=== PATIENT | male | born 1970 | race African-American/Black ===

== ENCOUNTER 2016-06-30 08:36 | Emergency (ER) | payer MEDICAID ==
--- NOTE | 2016-06-30 08:50 | ER Document Report ---
Addendum entered and electronically signed by OTF BERGER NP 06/30/16 09:36 : Discharge - Discharge Clinical Impression: dental decay and pain, Tooth ache Hypertension Qualifiers: Hypertension type: essential hypertension Qualified Code(s): I10 - Essential ( primary) hypertension Condition: Good Disposition: HOME, SELF-CARE Instructions: Dentist, Dental Infection or Abscess ([facility]), High Blood Pressure ( [facility]), Penicillin V K ([facility]), Toothache ([facility]) Additional Instructions: see dr. lloyd sunday for recheck 1 week supply of blood pressure medications, see your doctor for more refills see the dentist to er if worse Prescriptions: Amlodipine Besylate 10 mg PO DAILY #7 tab Lisinopril/Hydrochlorothiazide [Lisinopril-Hctz 20-12.5 mg Tab] 1 each PO BID # 14 tablet Penicillin V Potassium [Penicillin Vk 500 mg Tablet] 500 mg PO QID #40 tablet Tramadol HCl [Ultram 50 mg Tablet] 50 mg PO ASDIR PRN #10 tablet PRN Reason: Referrals: JUAN LLOYD MD [Primary Care Provider] - 07/03/16 Original Note: HPI - HPI Patient complains to provider of: tooth broke off and hurts Onset: Other - weeks ago Onset/Duration: Constant Quality of pain: Throbbing Pain Level: 4 Context: 45 yoobese male c/o left upper tooth/gum pain for 1 day, part of decayed tooth 2 weeks ago.no fever or facial swelling. Currently homeless but couch surfing. Took last bp meds 1 month ago, ran out. Had filled at [facility]. MOtrin and trylenol not working for the pain. Has ride to go home. - REPRODUCTIVE Reproductive: DENIES: : - DERM Skin Color: Normal Past Medical History - General Information source: Patient - Social History Smoking Status: Current Every Day Smoker Chew tobacco use (# tins/day): No Frequency of alcohol use: None Drug Abuse: None Family History: DM, Malignancy Patient has suicidal ideation: No Patient has homicidal ideation: No - Past Medical History Cardiac Medical History: Reports: Hx Hypertension Pulmonary Medical History: Reports: Hx Bronchitis, Hx Pneumonia Musculoskeltal Medical History: Reports Hx Arthritis, Reports Hx Musculoskeletal Deformity - chronic back pain, Reports Hx Musculoskeletal Trauma - Immunizations Immunizations up to date: No Hx Diphtheria, Pertussis, Tetanus Vaccination: No Hx Pneumococcal Vaccination: 05/29/12 Vertical Provider Document - CONSTITUTIONAL Agree With Documented VS: Yes Exam Limitations: No Limitations - INFECTION CONTROL TRAVEL OUTSIDE OF THE [place] IN LAST 30 DAYS: No - HEENT HEENT: Normocephalic Notes: decayed 2nd upper bicuspid, other bicuspid and molars gone. inflamed gingiva. - NECK Neck: Supple - RESPIRATORY O2 Sat by Pulse Oximetry: 98 - GI/ABDOMEN Gastrointestinal: Abdomen Soft, Abdomen Non-Tender, No Organomegaly - MUSCULOSKELETAL/EXTREMETIES Musculoskeletal/Extremeties: LENA WILSON - NEURO Level of Consciousness: Awake, Alert - DERM Integumentary: Warm, Dry Course - Re-evaluation Re-evalutation: 06/30/16 09:[address] [facility] re. hypertension in the ER. He agrees with the plan and dispostion of the patient. 06/30/16 09:35 - Vital Signs Vital signs: Temp Pulse Resp BP Pulse Ox 98.4 F 88 20 165/107 H 98 06/30/16 08:42 06/30/16 08:42 06/30/16 08:42 06/30/16 08:42 06/30/16 08:42 Discharge - Discharge Clinical Impression: dental decay and pain, Tooth ache Hypertension Qualifiers: Hypertension type: essential hypertension Qualified Code(s): I10 - Essential ( primary) hypertension Condition: Good Disposition: HOME, SELF-CARE Instructions: Toothache ([facility]), Penicillin V K ([facility]), Dentist, Dental Infection or Abscess ([facility]), High Blood Pressure ([facility]) Additional Instructions: see dr. lloyd sunday for recheck 1 week supply of blood pressure medications, see your doctor for more refills see the dentist to er if worse Prescriptions: Amlodipine Besylate 10 mg PO DAILY #7 tab Lisinopril/Hydrochlorothiazide [Lisinopril-Hctz 20-12.5 mg Tab] 1 each PO BID # 14 tablet Penicillin V Potassium [Penicillin Vk 500 mg Tablet] 500 mg PO QID #40 tablet Referrals: JUAN LLOYD MD [Primary Care Provider] - 07/03/16
[2016-06-30] MEDS ORDERED: IBUPROFEN 800 MG TABLET PO ONE (09:08)
[2016-06-30] MEDS ORDERED: ACETAMINOPHEN 325 MG TABLET PO ONE (09:08)
[2016-06-30] MEDS ORDERED: PENICILLIN V POTASSIUM 500 MG TABLET PO ONE (09:08)
[2016-06-30] MEDS ORDERED: TRAMADOL HCL 50 MG TABLET PO ONE (09:11)
[2016-06-30 09:26] VITALS: BP 178/118
== END 2016-06-30 09:40 | disposition home or self-care (01) ==
LOC: ER 08:36
DX: K02.9 Dental caries, unspecified (principal); K05.10 Chronic gingivitis, plaque induced; K08.89 Other specified disorders of teeth and supporting structures; I10 Essential (primary) hypertension; Z91.14 Patient's other noncompliance with medication regimen; Z59.0 Homelessness; F17.200 Nicotine dependence, unspecified, uncomplicated
CPT/HCPCS: 99282; J3490

== ENCOUNTER 2016-12-26 23:43 | Emergency (ER) | payer SELFPAY ==
[2016-12-26] MEDS ORDERED: ASPIRIN 81 MG TABLET, CHEWABLE PO ONE (23:57)
[2016-12-27 00:40] LABS: ABSOLUTE EOSINOPHILS # (AUTO) 0.5 10^3/uL (0.0-0.6); ABSOLUTE MONOCYTES (AUTO) 0.6 10^3/uL (0.1-1.4); ABSOLUTE NEUT (AUTO) 2.8 10^3/uL (1.7-8.2); BASOPHILS % (AUTO) 0.3 % (0-2); EOSINOPHILS % (AUTO) 8.1 % (0-6); HEMATOCRIT 43.4 % (37.9-51.0); HEMOGLOBIN 14.1 g/dL (13.5-17.0); HGB HCT DIFFERENCE -1.1; LYMPHOCYTES % (AUTO) 34.5 % (13-45); MEAN CORPUSCULAR HEMOGLOBIN 27.5 pg (27.0-33.4); MEAN CORPUSCULAR HGB CONC 32.5 g/dL (32.0-36.0); MEAN CORPUSCULAR VOLUME 85 fl (80-97); MONOCYTES % (AUTO) 9.5 % (3-13); RED BLOOD COUNT 5.13 10^6/uL (4.35-5.55); RED CELL DISTRIBUTION WIDTH 17.2 % (11.5-14.0); SEGMENTED NEUTROPHILS % (AUTO) 47.6 % (42-78); WHITE BLOOD COUNT 5.9 10^3/uL (4.0-10.5)
--- NOTE | 2016-12-27 01:00 | RADIOLOGY REPORT (SQ) ---
EXAM DESCRIPTION: CHEST SINGLE VIEW COMPLETED DATE/TIME: 12/27/2016 12:46 am REASON FOR STUDY: cp COMPARISON: 01/20/2014. EXAM PARAMETERS: NUMBER OF VIEWS: One view. TECHNIQUE: Single frontal radiographic view of the chest acquired. RADIATION DOSE: NA LIMITATIONS: None. FINDINGS: LUNGS AND PLEURA: No opacities, masses or pneumothorax. No pleural effusion. MEDIASTINUM AND HILAR STRUCTURES: No masses. Contour normal. HEART AND VASCULAR STRUCTURES: Heart normal in size. Normal vasculature. BONES: No acute findings. HARDWARE: None in the chest. OTHER: No other significant finding. IMPRESSION: NO ACUTE RADIOGRAPHIC FINDING IN THE CHEST. TECHNICAL DOCUMENTATION: JOB ID: [id number]
[2016-12-27 01:01] LABS: ALANINE AMINOTRANSFERASE 29 U/L (21-72); ALKALINE PHOSPHATASE 79 U/L (38-126); ANION GAP 7 (5-19); ASPARTATE AMINO TRANSFERASE 26 U/L (17-59); BILIRUBIN,DIRECT 0.3 mg/dL (0.0-0.4); BILIRUBIN,TOTAL 0.5 mg/dL (0.2-1.3); BLOOD UREA NITROGEN 12 mg/dL (7-20); CALCIUM 9.3 mg/dL (8.4-10.2); CARBON DIOXIDE 28 mmol/L (22-30); CHLORIDE 106 mmol/L (98-107); CREATINE KINASE 336 U/L (55-170); CREATININE RESULT 1.03 mg/dL (0.52-1.25); GLUCOSE 82 mg/dL (75-110); POTASSIUM 4.9 mmol/L (3.6-5.0); SODIUM 141.2 mmol/L (137-145); TOTAL PROTEIN 7.2 g/dL (6.3-8.2)
[2016-12-27 01:12] LABS: CREATINE KINASE MB 0.99 ng/mL (<4.55)
[2016-12-27 01:15] LABS: TROPONIN I < 0.012 ng/mL
--- NOTE | 2016-12-27 03:22 | ER Document Report ---
ED General - General Chief Complaint: Leg Pain Stated Complaint: LEG PAIN AND CHEST FEELS FUNNY Time Seen by Provider: 12/27/16 02:10 Mode of Arrival: Ambulatory Information source: Patient Notes: 46-year-old male presents to ED for low back pain for over a month. He states she has had back pain off and on for a long time but this time is been for the last month. He states he had some funny feelings in his chest but no complaints of discomfort. He states he has a history of high blood pressure but has not been on his medicines lately. States he lost his Medicaid and cannot go to his primary doctor. [facility]. TRAVEL OUTSIDE OF THE [place] IN LAST 30 DAYS: No - HPI Onset: Other - Chronic, this last time for over a month Onset/Duration: Intermittent Quality of pain: Cramping, Sharp Severity: Severe Pain Level: 5 Associated symptoms: Other - Chronic back pain with pain down his left leg. He states he had a funny feeling in his chest today but denies any discomfort or pain. 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 denies: Arthritis, CAD, COPD, Hyperlipidemia, Hypertension, Thyroid Disfunction - Past Medical History Cardiac Medical History: Reports: Hx Hypertension Pulmonary Medical History: Reports: Hx Bronchitis, Hx Pneumonia EENT Medical History: Reports: None Neurological Medical History: Reports: None Endocrine Medical History: Reports: None Renal/ Medical History: Reports: None Malignancy Medical History: Reports None GI Medical History: Reports: None Musculoskeltal Medical History: Reports Hx Arthritis, Reports Hx Musculoskeletal Deformity - chronic back pain, Reports Hx Musculoskeletal Trauma Skin Medical History: Reports None Psychiatric Medical History: Reports: None Traumatic Medical History: Reports: None Infectious Medical History: Reports: None Surgical Hx: Negative Past Surgical History: Reports: None - Immunizations Immunizations up to date: No Hx Diphtheria, Pertussis, Tetanus Vaccination: No Hx Pneumococcal Vaccination: 05/29/12 Review of Systems - Review of Systems Constitutional: No symptoms reported EENT: No symptoms reported Cardiovascular: No symptoms reported Respiratory: No symptoms reported Gastrointestinal: No symptoms reported Genitourinary: No symptoms reported Male Genitourinary: No symptoms reported Musculoskeletal: Back pain - Down his left leg Skin: No symptoms reported Hematologic/Lymphatic: No symptoms reported Neurological/Psychological: Numbness - Leg left, Tingling - left leg -: Yes All other systems reviewed and negative Physical Exam - Vital signs Vitals: Temp Pulse Resp BP Pulse Ox 98.5 F 99 20 170/107 H 95 12/26/16 23:53 12/26/16 23:53 12/26/16 23:53 12/26/16 23:53 12/26/16 23:53 Interpretation: Normal - General General appearance: Appears well, Alert - HEENT Head: Normocephalic, Atraumatic Eyes: Normal Pupils: PERRL - Respiratory Respiratory status: No respiratory distress Chest status: Nontender Breath sounds: Normal Chest palpation: Normal - Cardiovascular Rhythm: Regular Heart sounds: Normal auscultation Murmur: No - Abdominal Inspection: Normal Distension: No distension Bowel sounds: Normal Tenderness: Nontender Organomegaly: No organomegaly - Back Back: Normal, Tender. No: Deformity/step-off, CVA tenderness, Vertebra tenderness, Scars, Scoliosis, Wounds - Extremities General upper extremity: Normal inspection, Nontender, Normal color, Normal ROM , Normal temperature General lower extremity: Normal inspection, Nontender, Normal color, Normal ROM , Normal temperature, Normal weight bearing. No: Colin's sign Thigh: Tender. No: Unable to bear weight - Pain when walking Knee: Unable to bear weight - Pain when walking - Neurological Neuro grossly intact: Yes Cognition: Normal Orientation: AAOx4 [place] Coma Scale Eye Opening: Spontaneous [place] Coma Scale Verbal: Oriented [place] Coma Scale Motor: Obeys Commands [place] Coma Scale Total: 15 Speech: Normal Motor strength normal: LUE, RUE, LLE, RLE Sensory: Normal - Psychological Associated symptoms: Normal affect, Normal mood - Skin Skin Temperature: Warm Skin Moisture: Dry Skin Color: Normal Course - Re-evaluation Re-evalutation: 12/27/16 06:27 Discussed lab and x-rays with patient. Written reports of labs and x-ray given to patient patient discharged home to follow-up with primary doctor. The patient cannot follow-up with due to no insurance I gave him also think [facility] and [facility] numbers - Vital Signs Vital signs: Temp Pulse Resp BP Pulse Ox 98.5 F 89 18 151/92 H 99 12/26/16 23:53 12/27/16 03:00 12/27/16 03:00 12/27/16 03:00 12/27/16 03:00 - Laboratory Result Diagrams: 12/27/16 00:30 12/27/16 00:30 Laboratory results interpreted by me: 12/27/16 12/27/16 00:30 00:30 RDW 17.2 H Eosinophils % 8.1 H Creatine Kinase 336 H - Diagnostic Test Radiology reviewed: Image reviewed, Reports reviewed Discharge - Discharge Clinical Impression: Chronic low back pain with left-sided sciatica Qualifiers: Back pain laterality: left Qualified Code(s): M54.42 - Lumbago with sciatica, left side Condition: Stable Disposition: HOME, SELF-CARE Instructions: Family Physicians / Practices Additional Instructions: LOW BACK PAIN: Three out of every four people will have an episode of disabling back pain during their lifetime. Most commonly the pain is due to straining of the muscles and ligaments in the low back. Usual treatment includes: (1) Rest on a firm surface. Avoid lying on your stomach. (2) Ice pack the painful area. After a few days, gentle heat may be used intermittently to relax the area, or ice packs can be continued. (3) Medication may be needed -- muscle relaxers and antiinflammatory medicines are commonly used. (4) As the back improves, exercises are prescribed to strengthen the back and abdominal muscles. Your doctor will advise you on the proper care for your back at each stage in your recovery. You may be better in a few days -- or healing may take several weeks. If new symptoms of a "herniated disc" (radiation of pain, numbness, or tingling down the back of the leg or weakness in the leg) occur, you should be re-examined. Further testing may be necessary. Chronic Pain Control Stress, inactivity, and depression make pain more severe regardless of the cause of the pain. Stress and poor physical condition can cause pain such as headaches and backache. Relaxation: Rest in a quiet place with your eyes closed for 20 minutes twice daily. Concentrate on a pleasant image, or simply "feel" your breathing. Clear your mind. Stress management: Deal with your "stressors." Either take action, or eliminate the stressor from your life. Don't let things hang over you. Accept those things you can't change. Nutrition: Eat small, balanced meals -- don't skip, don't overeat. Meals should be high-carbohydrate, low-sugar, low-fat. Exercise: Exercise helps painful conditions and eases stress. Get 30 minutes of moderate exercise, five days a week. Do an activity that does not flare your pain. Precautions: Pain which continues to disrupt daily activities, or which changes in nature, requires a medical evaluation. Pain Clinic referral is available. We do not manage chronic pain in the Emergency Department. We will try to appropriately help you through an acute flare of your chronic painful condition , but for on-going chronic pain that does not improve, you will need to see your private doctor or finish painter. We do not provide repeated medication management of chronic painful conditions. If you wish, we can provide the name of local pain management physicians. STEROID MEDICATION: You have been given an injection of medicine of the cortisone/steroid class. This medication is used to control inflammation or allergy. It is often continued as a pill for a short period of time, until the acute process subsides. There are usually no side effects from short-term use of cortisone-like medications. Some persons feel an increased sense of well-being and are not sleepy at bedtime. Long-term use of cortisone medications is best avoided, unless required for a severe condition. If your condition does not remit, or relapses after the course of corticosteroid medication, you should consult your physician. Toradol Injection You have been given an injection of ketorolac tromethamine (Toradol). This is an excellent, safe drug for pain control. It also has potent antiinflammatory action. You should have significant pain relief within about one hour. Toradol is not addicting and is non-sedating. It does not interfere with driving or work. Call or return if you develop itching, hives, shortness of breath, or rash. ICE PACKS: Apply ice packs frequently against the painful area. Many different schedules are recommended, such as "20 minutes on, 20 minutes off" or "one hour ice, two hours rest." If you need to work, you may need to go longer between ice treatments. You should plan to have the area ice packed AT LEAST one fourth of the time. The ice should be applied over the wrap, tape, or splint, or over a layer of cloth -- not directly against the skin. Some ice bags have a built-in cloth and can be put directly on the skin. WARM PACKS: After approximately two days, apply gentle heat (such as a heating pad or hot water bottle) for about 20 to 30 minutes about every two hours -- at least four times daily. Warmth and elevation will help you make a more rapid recovery , and will ease the pain considerably. Do not use HOT heat, and never apply heat for longer than 30 minutes. The continuous heat can invisibly damage skin and muscles -- even when no burn is seen on the surface. Damaged muscles can make you MORE sore. FOLLOW-UP CARE: If you have been referred to a physician for follow-up care, call the physician s office for an appointment as you were instructed or within the next two days. If you experience worsening or a significant change in your symptoms, notify the physician immediately or return to the Emergency Department at any time for re-evaluation. Forms: Elevated Blood Pressure, Smoking Cessation Education, Return to Work Referrals: TISHA RAMIREZ [Primary Care Provider] - Follow up as needed [facility] [Provider Group] - Follow up as needed [facility] [Provider Group] - Follow up as needed
--- NOTE | 2016-12-27 04:10 | RADIOLOGY REPORT (SQ) ---
EXAM DESCRIPTION: KNEE LEFT 4 VIEW COMPLETED DATE/TIME: 12/27/2016 3:55 am REASON FOR STUDY: pain no new injury COMPARISON: None. NUMBER OF VIEWS: Four views. TECHNIQUE: AP, lateral, and both oblique radiographic images acquired of the left knee. LIMITATIONS: None. FINDINGS: MINERALIZATION: Normal. BONES: No acute fracture or dislocation. No worrisome bone lesions. No significant osteophytes. JOINT: No effusion. No chondrocalcinosis. OTHER: No other significant finding. IMPRESSION: NEGATIVE STUDY OF THE LEFT KNEE. NO EXPLANATION FOR PAIN. TECHNICAL DOCUMENTATION: JOB ID: [id number] [employer]- All Rights Reserved
--- NOTE | 2016-12-27 04:11 | RADIOLOGY REPORT (SQ) ---
EXAM DESCRIPTION: L SPINE WHOLE COMPLETED DATE/TIME: 12/27/2016 3:55 am REASON FOR STUDY: pain no new injury COMPARISON: 03/18/2015. NUMBER OF VIEWS: Five views including obliques. TECHNIQUE: AP, lateral, oblique, and sacral radiographic images acquired of the lumbar spine. LIMITATIONS: None. FINDINGS: MINERALIZATION: Normal. SEGMENTATION: Normal. No transitional anatomy. ALIGNMENT: Normal. VERTEBRAE: Maintained height. No fracture or worrisome bone lesion. DISCS: Preserved height. No significant osteophytes or end plate irregularity. POSTERIOR ELEMENTS: Pedicles and facets are intact. No pars defect or posterior arch defects. HARDWARE: None in the spine. PARASPINAL SOFT TISSUES: Normal. PELVIS: Intact as visualized. No fractures or worrisome bone lesions. SI joints intact. OTHER: No other significant finding. IMPRESSION: NORMAL 5 VIEW LUMBAR SPINE. TECHNICAL DOCUMENTATION: JOB ID: [id number] [employer]- All Rights Reserved
[2016-12-27] MEDS ORDERED: KETOROLAC TROMETHAMINE 60 MG/2 ML SDV IM ONE (06:11)
[2016-12-27] MEDS ORDERED: DEXAMETHASONE SOD PHOS INJ 10 MG/1 ML VIAL IM ONE (06:11)
[2016-12-27 06:56] VITALS: BP 148/95
--- NOTE | 2016-12-29 06:01 | EKG REPORT ---
SEVERITY:- BORDERLINE ECG - SINUS RHYTHM PROBABLE LEFT ATRIAL ABNORMALITY BORDERLINE T ABNORMALITIES, INFERIOR LEADS : Confirmed by: Janet Miller MD 29-Dec-2016 06:01:05
== END 2016-12-27 06:56 | disposition home or self-care (01) ==
LOC: ER 23:43
DX: M54.42 Lumbago with sciatica, left side (principal); G89.29 Other chronic pain; R09.89 Other specified symptoms and signs involving the circulatory and respiratory systems; I10 Essential (primary) hypertension; T50.906A Underdosing of unspecified drugs, medicaments and biological substances, initial encounter; Z91.128 Patient's intentional underdosing of medication regimen for other reason; Z91.14 Patient's other noncompliance with medication regimen; F17.210 Nicotine dependence, cigarettes, uncomplicated; Z71.6 Tobacco abuse counseling
CPT/HCPCS: 93005; 99284; 36415; 82553; 82550; 85025; 80053; 84484; 71010; 73562; 72110; 93010; J1885; J1100

== ENCOUNTER 2017-02-20 16:08 | Emergency (ER) | payer SELFPAY ==
[2017-02-20] MEDS ORDERED: IBUPROFEN 800 MG TABLET PO ONE (17:42)
--- NOTE | 2017-02-20 17:52 | ER Document Report ---
ED General - General Chief Complaint: Rib Pain Stated Complaint: SIDE INJURY Time Seen by Provider: 02/20/17 17:30 Mode of Arrival: Ambulatory Information source: Patient Notes: 46-year-old male presents to ED for right rib pain. He states he was working on his boat and felt a sharp pain in the right rib area. He states due to finances. He states when his kids mother took the kids they took his Medicaid away and he cannot afford to go to the doctor. Patient was instructed [facility] or someone to treat his blood pressure. TRAVEL OUTSIDE OF THE [place] IN LAST 30 DAYS: No - HPI Onset: This afternoon Onset/Duration: Sudden Quality of pain: Burning, Sharp Severity: Moderate Pain Level: 3 Associated symptoms: Chest pain - Right chest wall pain started suddenly when he [place] felt a sharp pain in the right ribs around 1 PM today Exacerbated by: Movement, Coughing, Deep breathing Relieved by: Denies Similar symptoms previously: No Recently seen / treated by doctor: No - Related Data Allergies/Adverse Reactions: No Known Allergies Allergy (Verified 06/30/16 08:41) Home Medications: Current Home Medications No Home Medications 02/20/17 [History] Past Medical History - General Information source: Patient - Social History Smoking Status: Current Every Day Smoker Cigarette use (# per day): Yes - Pack per day Chew tobacco use (# tins/day): No Smoking Education Provided: Yes - Less than 2 minutes Frequency of alcohol use: None Drug Abuse: None 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 Lives with: Alone Family History: CVA, DM, Malignancy Patient has suicidal ideation: No Patient has homicidal ideation: No - Past Medical History Cardiac Medical History: Reports: Hx Hypertension Pulmonary Medical History: Reports: Hx Bronchitis, Hx Pneumonia EENT Medical History: Reports: None Neurological Medical History: Reports: None Endocrine Medical History: Reports: None Renal/ Medical History: Reports: None Malignancy Medical History: Reports None GI Medical History: Reports: None Musculoskeltal Medical History: Reports Hx Arthritis, Reports Hx Musculoskeletal Deformity - chronic back pain, Reports Hx Musculoskeletal Trauma - Drains and sprains but no fractures Skin Medical History: Reports None Psychiatric Medical History: Reports: None Traumatic Medical History: Reports: None Infectious Medical History: Reports: None Surgical Hx: Negative Past Surgical History: Reports: None - Immunizations Immunizations up to date: No Hx Diphtheria, Pertussis, Tetanus Vaccination: No Hx Pneumococcal Vaccination: 05/29/12 Review of Systems - Review of Systems Constitutional: No symptoms reported EENT: No symptoms reported Cardiovascular: Chest pain - Right chest wall pain started suddenly while turning a wrench on his boat Respiratory: Other - Pain with deep breath or cough to the right chest wall Gastrointestinal: No symptoms reported Genitourinary: No symptoms reported Male Genitourinary: No symptoms reported Musculoskeletal: No symptoms reported Skin: No symptoms reported Hematologic/Lymphatic: No symptoms reported Neurological/Psychological: No symptoms reported -: Yes All other systems reviewed and negative Physical Exam - Vital signs Vitals: Temp Pulse Resp BP Pulse Ox 98.5 F 75 18 176/108 H 100 02/20/17 16:18 02/20/17 16:18 02/20/17 16:18 02/20/17 16:18 02/20/17 16:18 Interpretation: Normal - General General appearance: Appears well, Alert - HEENT Head: Normocephalic, Atraumatic Eyes: Normal Pupils: PERRL - Respiratory Respiratory status: No respiratory distress Chest status: Tender, Pain with cough, Pain with deep breathing Breath sounds: Normal Chest palpation: Normal - Cardiovascular Rhythm: Regular Heart sounds: Normal auscultation Murmur: No - Abdominal Inspection: Normal Distension: No distension Bowel sounds: Normal Tenderness: Nontender Organomegaly: No organomegaly - Back Back: Normal, Nontender - Extremities General upper extremity: Normal inspection, Nontender, Normal color, Normal ROM , Normal temperature General lower extremity: Normal inspection, Nontender, Normal color, Normal ROM , Normal temperature, Normal weight bearing. No: Colin's sign - Neurological Neuro grossly intact: Yes Cognition: Normal Orientation: AAOx4 [place] Coma Scale Eye Opening: Spontaneous [place] Coma Scale Verbal: Oriented [place] Coma Scale Motor: Obeys Commands [place] Coma Scale Total: 15 Speech: Normal Motor strength normal: LUE, RUE, LLE, RLE Sensory: Normal - Psychological Associated symptoms: Normal affect, Normal mood - Skin Skin Temperature: Warm Skin Moisture: Dry Skin Color: Normal Course - Re-evaluation Re-evalutation: 02/20/17 19:13 Discussed x-ray with patient and written report given to patient. Patient states he would rather take [id number] ibuprofen and get a prescription. Patient to follow-up with his primary doctor for his elevated blood pressure. Instructed patient if he cannot go to his primary doctor [facility] or to find an urgent care but he needs to follow-up concerning his blood pressure. Patient verbalized understanding. - Vital Signs Vital signs: Temp Pulse Resp BP Pulse Ox 98.5 F 75 18 176/108 H 100 02/20/17 16:18 02/20/17 16:18 02/20/17 16:18 02/20/17 16:18 02/20/17 16:18 - Diagnostic Test Radiology reviewed: Image reviewed, Reports reviewed Discharge - Discharge Clinical Impression: Right-sided chest wall pain Condition: Stable Disposition: HOME, SELF-CARE Additional Instructions: CHEST WALL PAIN: Your chest pain may be coming from the chest wall. This is often caused by straining the muscles or joints in the chest during physical activity, direct trauma, coughing, or vigorous vomiting. Persons with arthritis are especially prone to this type of pain, due to inflammation of the cartilage joints near the breast bone. Occasionally, no cause can be found. Rest from strenuous physical activity. This kind of chest pain is usually made worse by movement of the chest. Depending on the symptoms, we may prescribe medicine for pain, muscle relaxation, and antiinflammatory effects. If the pain is new, and seems to be due to muscle strain, cold packs can help. Otherwise, apply gentle warmth to the painful area for 15 minutes every hour or two. You should call contact the doctor immediately if things change. Further evaluation is needed if you develop a fever or cough, if the nature of the pain changes, or if you become short of breath. USE OF TYLENOL (ACETAMINOPHEN): Acetaminophen may be taken for pain relief or fever control. It's much safer than aspirin, offering a wider range of "safe" dosages. It is safe during . Some brand names are Tylenol, Panadol, Datril, Anacin 3, Tempra, and Liquiprin. Acetaminophen can be repeated every four hours. The following are maximum recommended dosages: WEIGHT Dose Drops Elixir Chewable( 80mg) (LBS.) drprs=droppers tsp=teaspoon 6 40 mg 0.4 ml (1/2) 6-11 80 mg 0.8 ml (full) tsp 1 tab 12-16 120 mg 1 1/2 drprs 3/4 tsp 1 1/2 tabs 17-23 160 mg 2 drprs 1 tsp 2 tabs 24-30 240 mg 3 drprs 1 1/2 tsp 3 tabs 30-35 320 mg 2 tsp 4 tabs 36-41 360 mg 2 1/4 tsp 4 1/2 tabs 42-47 400 mg 2 1/2 tsp 5 tabs 48-53 480 mg 3 tsp 6 tabs 54-59 520 mg 3 1/4 tsp 6 1/2 tabs 60-64 560 mg 3 1/2 tsp 7 tabs 65-70 600 mg 3 3/4 tsp 7 1/2 tabs 71-76 640 mg 4 tsp 8 tabs 77-82 720 mg 4 1/2 tsp 9 tabs 83-88 800 mg 5 tsp 10 tabs >89 pounds or adults 650 mg to 900 mg Acetaminophen can be repeated every four hours. Maximum dose not to exceed 4000 mg a day. These maximum recommended dosages are slightly higher than the dosages written on the product container, but these dosages are very safe and below the toxic dosage for acetaminophen. USE OF [id number]-ZOC-QCKWEHU IBUPROFEN: Ibuprofen (Advil, Nuprin, Medipren, Motrin IB) is a medication for fever and pain control. In addition, it has anti- inflammatory effects which may be beneficial, especially in the treatment of injuries. It's best to take ibuprofen with food. Persons with ulcer disease or allergy to aspirin should notify their physician of this before taking ibuprofen. Ibuprofen can be given every four to six hours, for a total of four doses daily. Age Pain or fever dose Antiinflammatory dose 6-8 yr 200 mg (1 tab) 200 mg (1 tab) 9-11 yr 200 mg (1 tab) 200-400 mg (1-2 tab) 11-14 yr 200-400 mg (1-2 tab) 400 mg (2 tab) 15-adult 400 mg (2 tab) 600 mg (3 tab) FOLLOW-UP CARE: If you have been referred to a physician for follow-up care, call the physician s office for an appointment as you were instructed or within the next two days. If you experience worsening or a significant change in your symptoms, notify the physician immediately or return to the Emergency Department at any time for re-evaluation. Forms: Elevated Blood Pressure, Smoking Cessation Education, Return to Work
--- NOTE | 2017-02-20 18:14 | RADIOLOGY REPORT (SQ) ---
EXAM DESCRIPTION: RIBS RIGHT W/PA CHEST COMPLETED DATE/TIME: 02/20/2017 5:52 pm REASON FOR STUDY: right rib pain COMPARISON: Chest x-ray dated 12/27/2016 TECHNIQUE: Frontal view of the chest and additional views of the right ribs acquired. NUMBER OF VIEWS: Four view. LIMITATIONS: None. FINDINGS: FRONTAL CXR: Stable in appearance. There is chronic blunting of the right costophrenic an gle. RIBS: No displaced rib fractures. No lytic or blastic bony lesions. OTHER: No other significant finding. IMPRESSION: NO PNEUMOTHORAX. NO DISPLACED RIB FRACTURES. COMMENT: SITE OF TRAUMA/COMPLAINT MARKED/STAMP COMPLETED: NO. TECHNICAL DOCUMENTATION: JOB ID: [id number] [employer]- All Rights Reserved
[2017-02-20 19:13] VITALS: BP 150/93
== END 2017-02-20 19:10 | disposition home or self-care (01) ==
LOC: ER 16:08
DX: R07.81 Pleurodynia (principal); R07.9 Chest pain, unspecified; F17.210 Nicotine dependence, cigarettes, uncomplicated; I10 Essential (primary) hypertension
CPT/HCPCS: 99283

== ENCOUNTER 2017-08-09 19:53 | Inpatient (IN) | payer SELFPAY ==
[2017-08-09] MEDS ORDERED: IPRATROPIUM/ALBUTEROL 0.5-2.5 MG/3 ML AMPUL NEB ONE (20:25)
--- NOTE | 2017-08-09 20:25 | ER Document Report ---
ED Medical Screen (RME) - General Chief Complaint: Diarrhea Stated Complaint: DIFFICULTY BREATHING Time Seen by Provider: 08/09/17 19:56 Mode of Arrival: Ambulatory Information source: Patient Notes: 46-year-old male found to be satting 91% on room air presents with complaints of shortness of breath nausea vomiting diarrhea of one-week duration. Patient notes he has not urinated in 3 days due to decreased appetite I have greeted and performed a rapid initial assessment of this patient. A comprehensive ED assessment and evaluation of the patient, analysis of test results and completion of the medical decision making process will be conducted by additional ED providers. PHYSICAL EXAMINATION: GENERAL: Moderately ill-appearing male. HEAD: Atraumatic, normocephalic. EYES: Pupils equal round extraocular movements intact, conjunctiva are normal. ENT: Nares patent NECK: Normal range of motion LUNGS: Tachypnea wheezing inspiratory left upper lobe Musculoskeletal: Normal range of motion NEUROLOGICAL: Normal speech, normal gait. PSYCH: Normal mood, normal affect. SKIN: Warm, Dry, normal turgor, no rashes or lesions noted. TRAVEL OUTSIDE OF THE [place] IN LAST 30 DAYS: No - Related Data Allergies/Adverse Reactions: No Known Allergies Allergy (Verified 06/30/16 08:41) Past Medical History - Past Medical History Cardiac Medical History: Reports: Hx Hypertension Denies: Hx Congestive Heart Failure, Hx Hypercholesterolemia Pulmonary Medical History: Reports: Hx Bronchitis, Hx Pneumonia Denies: Hx Asthma Neurological Medical History: Denies: Hx Cerebrovascular Accident, Hx Seizures Renal/ Medical History: Denies: Hx Peritoneal Dialysis Musculoskeltal Medical History: Reports Hx Arthritis, Reports Hx Musculoskeletal Deformity - chronic back pain, Reports Hx Musculoskeletal Trauma - Drains and sprains but no fractures Psychiatric Medical History: Denies: Hx Dementia Past Surgical History: Denies: Hx Pacemaker - Immunizations Immunizations up to date: No Hx Diphtheria, Pertussis, Tetanus Vaccination: No
[2017-08-09] MEDS ORDERED: DEXAMETHASONE SOD PHOS INJ 10 MG/1 ML VIAL IV ONE (20:54)
--- NOTE | 2017-08-09 20:54 | ER Document Report ---
ED General - General Chief Complaint: Diarrhea Stated Complaint: DIFFICULTY BREATHING Time Seen by Provider: 08/09/17 19:56 Mode of Arrival: Ambulatory TRAVEL OUTSIDE OF THE [place] IN LAST 30 DAYS: No - HPI Notes: Patient is a 46-year-old male with a history of asthma who presents to the ED complaining of nasal congestion/discharge, intermittent fever/body ache, dry nonproductive cough, occasional wheeze, occasional dyspnea, and watery loose stool 5 days. Patient states that he has not been eating solid foods in the last week as well because of a decreased appetite. Patient states that he has been drinking water just not a lot. he has not urinated in the last 2-3 days. Patient states that he is ambulatory without any dyspnea on exertion or any development of chest pain. Patient states that he otherwise feels well. He has not had any melena or hematochezia. He denies any drug allergies. Patient does admit to smoking but denies IV drug use. No other concerns or complaints at this time. Denies any headache, current fever, neck pain, sore throat, chest pain, palpitations, syncope, abdominal pain, nausea/vomiting, urinary retention, dysuria, hematuria, back pain, loss of control of bowel or bladder, numbness/tingling, saddle anesthesia, muscle paralysis/weakness, or rash. - Related Data Allergies/Adverse Reactions: No Known Allergies Allergy (Verified 06/30/16 08:41) Past Medical History - General Information source: Patient - Social History Smoking Status: Current Every Day Smoker Chew tobacco use (# tins/day): No Frequency of alcohol use: None Drug Abuse: None Family History: CVA, DM, Malignancy Patient has suicidal ideation: No Patient has homicidal ideation: No - Past Medical History Cardiac Medical History: Reports: Hx Hypertension Denies: Hx Congestive Heart Failure, Hx Hypercholesterolemia Pulmonary Medical History: Reports: Hx Bronchitis, Hx Pneumonia Denies: Hx Asthma Neurological Medical History: Denies: Hx Cerebrovascular Accident, Hx Seizures Renal/ Medical History: Denies: Hx Peritoneal Dialysis Musculoskeltal Medical History: Reports Hx Arthritis, Reports Hx Musculoskeletal Deformity - chronic back pain, Reports Hx Musculoskeletal Trauma - Drains and sprains but no fractures Psychiatric Medical History: Denies: Hx Dementia Past Surgical History: Denies: Hx Pacemaker - Immunizations Immunizations up to date: No Hx Diphtheria, Pertussis, Tetanus Vaccination: No Hx Pneumococcal Vaccination: 05/29/12 Review of Systems - Review of Systems -: Yes All other systems reviewed and negative Physical Exam - Vital signs Vitals: Temp Pulse Resp BP Pulse Ox 99.5 F 107 H 19 138/83 H 91 L 08/09/17 20:19 08/09/17 20:19 08/09/17 20:19 08/09/17 20:19 08/09/17 20:19 - Notes Notes: PHYSICAL EXAMINATION: GENERAL: Well-appearing, well-nourished and in no acute distress. A&Ox4. Answers questions appropriately. Moves comfortably w/o notable distress. speaks in full sentences. HEAD: Atraumatic, normocephalic. EYES: Pupils equal round and reactive to light, extraocular movements intact, sclera anicteric, conjunctiva are normal. ENT: Nares patent and with clear discharge. oropharynx no erythema without exudates. No tonsilar hypertrophy without erythema or exudate. No palatine shift. Uvula midline. No tongue protrusion. No drooling, hoarseness, or airway compromise. Moist mucous membranes. No sinus tenderness. NECK: Normal range of motion, supple without lymphadenopathy. No rigidity/ meningismus. LUNGS: scant wheeze b/l. No retractions HEART: Regular rate and rhythm without murmurs, rubs, gallops. ABDOMEN: Soft, nontender, nondistended abdomen. No guarding, no rebound. No masses appreciated. Normal bowel sounds present. No CVA tenderness bilaterally. No hepatosplenomegaly. NEUROLOGICAL: Normal speech, normal gait. Normal sensory, motor exams PSYCH: Normal mood, normal affect. SKIN: Warm, Dry, normal turgor, no rashes or lesions noted. Course - Re-evaluation Re-evalutation: 08/09/17 23:16 Patient is an afebrile, well-hydrated, 46-year-old male who presents to the ED with acute kidney injury as well as bilateral pneumonia. Vitals are currently stable. See lab results as well as imaging results. Pt was given fluids and a duoneb treatment. Cdiff pending. Reviewed case with the hospitalist who accepted patient for admission. We will start azithromycin and Rocephin at this time. Other direction per Dr. De La Cruz. Pt is in agreement with admission/plan. - Vital Signs Vital signs: Temp Pulse Resp BP Pulse Ox 99.5 F 107 H 19 138/83 H 91 L 08/09/17 20:19 08/09/17 20:19 08/09/17 20:19 08/09/17 20:19 08/09/17 20:19 - Laboratory Result Diagrams: 08/09/17 21:00 08/09/17 21:00 Laboratory results interpreted by me: 08/09/17 08/09/17 08/09/17 21:00 21:00 21:00 WBC 13.8 H RBC 5.61 H RDW 16.6 H Seg Neutrophils % 83.2 H Lymphocytes % 8.5 L Absolute Neutrophils 11.5 H Sodium 132.0 L Carbon Dioxide 18 L BUN 32 H Creatinine 3.21 H Est GFR ( Amer) 26 L Est GFR (Non-Af Amer) 21 L Direct Bilirubin 0.6 H Urine Protein Urine Blood Urine Bilirubin Urine Urobilinogen Ur Leukocyte Esterase Urine Ascorbic Acid Salicylates < 1.0 L Acetaminophen < 10 L 08/09/17 21:30 WBC RBC RDW Seg Neutrophils % Lymphocytes % Absolute Neutrophils Sodium Carbon Dioxide BUN Creatinine Est GFR ( Amer) Est GFR (Non-Af Amer) Direct Bilirubin Urine Protein 100 H Urine Blood SMALL H Urine Bilirubin SMALL H Urine Urobilinogen 2.0 H Ur Leukocyte Esterase SMALL H Urine Ascorbic Acid 20 H Salicylates Acetaminophen Discharge - Discharge Clinical Impression: Acute kidney injury Pneumonia Qualifiers: Pneumonia type: due to unspecified organism Laterality: bilateral Lung location : unspecified part of lung Qualified Code(s): J18.9 - Pneumonia, unspecified organism Condition: Stable Disposition: ADMITTED INPATIENT Admitting Provider: Hospitalist - Dr. De La Cruz Unit Admitted: Telemetry
[2017-08-09 21:21] LABS: HEMOGLOBIN 15.4 g/dL (13.5-17.0); TOTAL CELLS COUNTED % (AUTO) 100 %
[2017-08-09] MEDS: NORMAL SALINE 1000 ML 1,000 ML IV PRN ×2 (21:31→22:58)
[2017-08-09 21:35] LABS: ABSOLUTE LYMPHOCYTES (AUTO) 1.2 10^3/uL (0.5-4.7); ABSOLUTE MONOCYTES (AUTO) 1.1 10^3/uL (0.1-1.4); ABSOLUTE NEUT (AUTO) 11.5 10^3/uL (1.7-8.2); BASOPHILS % (AUTO) 0.3 % (0-2); HEMATOCRIT 45.7 % (37.9-51.0); LYMPHOCYTES % (AUTO) 8.5 % (13-45); MEAN CORPUSCULAR HEMOGLOBIN 27.4 pg (27.0-33.4); MEAN CORPUSCULAR HGB CONC 33.6 g/dL (32.0-36.0); MEAN CORPUSCULAR VOLUME 82 fl (80-97); PLATELET COUNT 192 10^3/uL (150-450); RED BLOOD COUNT 5.61 10^6/uL (4.35-5.55); RED CELL DISTRIBUTION WIDTH 16.6 % (11.5-14.0); SEGMENTED NEUTROPHILS % (AUTO) 83.2 % (42-78); WHITE BLOOD COUNT 13.8 10^3/uL (4.0-10.5)
[2017-08-09 21:36] LABS: ALANINE AMINOTRANSFERASE 46 U/L (21-72); ALBUMIN 4.2 g/dL (3.5-5.0); ALKALINE PHOSPHATASE 94 U/L (38-126); ANION GAP 15 (5-19); ASPARTATE AMINO TRANSFERASE 44 U/L (17-59); BILIRUBIN,DIRECT 0.6 mg/dL (0.0-0.4); BILIRUBIN,TOTAL 0.8 mg/dL (0.2-1.3); BLOOD UREA NITROGEN 32 mg/dL (7-20); CALCIUM 9.1 mg/dL (8.4-10.2); CARBON DIOXIDE 18 mmol/L (22-30); CHLORIDE 99 mmol/L (98-107); GLUCOSE 108 mg/dL (75-110); POTASSIUM 4.4 mmol/L (3.6-5.0); TOTAL PROTEIN 7.8 g/dL (6.3-8.2)
[2017-08-09 21:51] LABS: APPEARANCE,URINE CLOUDY; BILIRUBIN,URINE SMALL (NEGATIVE); GLUCOSE, URINE NEGATIVE (NEGATIVE); KETONES,URINE NEGATIVE (NEGATIVE); LEUKOCYTE ESTERASE,URINE SMALL (NEGATIVE); NITRITE,URINE NEGATIVE (NEGATIVE); PROTEIN,URINE 100 mg/dL (NEGATIVE); URINE SPECIFIC GRAVITY 1.023
[2017-08-09 21:52] LABS: COLOR,URINE DARK YELLOW
--- NOTE | 2017-08-09 21:59 | RADIOLOGY REPORT (SQ) ---
EXAM DESCRIPTION: CHEST PA/LAT COMPLETED DATE/TIME: 08/09/2017 9:07 pm REASON FOR STUDY: cough, hypoxemia, COMPARISON: None. EXAM PARAMETERS: NUMBER OF VIEWS: two views TECHNIQUE: Digital Frontal and Lateral radiographic views of the chest acquired. RADIATION DOSE: NA LIMITATIONS: none FINDINGS: LUNGS AND PLEURA: Diffuse increased interstitial and alveolar opacities bilaterally. No p leural effusion or pneumothorax. MEDIASTINUM AND HILAR STRUCTURES: Stable. HEART AND VASCULAR STRUCTURES: Similar mild cardiomegaly. BONES: No acute findings. HARDWARE: None in the chest. OTHER: No other significant finding. IMPRESSION: Diffuse increased interstitial and alveolar opacities bilaterally. TECHNICAL DOCUMENTATION: JOB ID: [id number] [place]-72 2010 [employer]- All Rights Reserved Reading location - IP/workstation name: [employer]
[2017-08-09 22:22] LABS: ACETAMINOPHEN < 10 ug/mL (10-30); SALICYLATE < 1.0 mg/dL (2.0-20.0)
[2017-08-09 23:01] LABS: URINE AMPHETAMINES SCREEN NEGATIVE; URINE BARBITURATES SCREEN UNCONFIRMED POSITIVE; URINE BENZODIAZEPINES SCREEN NEGATIVE; URINE COCAINE SCREEN NEGATIVE; URINE MARIJUANA (THC) SCREEN UNCONFIRMED POSITIVE; URINE METHADONE SCREEN NEGATIVE; URINE PHENCYCLIDINE SCREEN NEGATIVE
[2017-08-09] MEDS ORDERED: AZITHROMYCIN INJ 500 MG VIAL IV ONE (23:16)
[2017-08-09] MEDS ORDERED: CEFTRIAXONE 1 GM/D5W RTU 1 GM/50 ML RTUPB IV ONE (23:16)
[2017-08-10] MEDS ORDERED: ACETAMINOPHEN 325 MG TABLET PO PRN (00:15)
[2017-08-10] MEDS ORDERED: IPRATROPIUM/ALBUTEROL 0.5-2.5 MG/3 ML AMPUL NEB PRN (00:15)
[2017-08-10] MEDS ORDERED: GUAIFENESIN SYRP 200 MG/10 ML UDC PO PRN (00:15)
[2017-08-10] MEDS ORDERED: AZITHROMYCIN INJ 500 MG VIAL IV PRN (00:29)
[2017-08-10 00:58] LABS: TROPONIN I < 0.012 ng/mL
[2017-08-10] MEDS: IPRATROPIUM/ALBUTEROL 0.5-2.5 MG/3 ML AMPUL NEB SCH ×4 (01:48→20:43)
[2017-08-10] MEDS ORDERED: CEFTRIAXONE INJ 1000 MG VIAL ONE (03:25)
--- NOTE | 2017-08-10 04:40 | PDOC H&P ---
History of Present Illness Admission Date/PCP: 08/09/17 23:23 Patient complains of: Shortness of breath History of Present Illness: ROSARIO ESPINOZA is a 46 year old male with a past medical history of tobacco dependence, Morbid obesity, hypertension and noncompliance with medication and lifestyle. Patient complains of rhinorrhea, intermittent fever, joint pain, shortness of breath and a nonproductive cough. He has taken multiple over-the- counter preparations without significant improvement including ibuprofen. In the emergency room he is found to have bilateral infiltrates, leukocytosis, acute renal failure with a creatinine of 3.2 from a normal baseline 6 months ago. He started on empiric antibiotics and referred to the hospitalist for admission. Patient denies recent change in medication with exception to over- the-counter preparations. Past Medical History Cardiac Medical History: Reports: Hypertension Denies: Congestive Heart Failure, Hyperlipidema Pulmonary Medical History: Reports: Bronchitis, Pneumonia Denies: Asthma Neurological Medical History: Denies: Seizures Musculoskeltal Medical History: Reports: Arthritis Psychiatric Medical History: Reports: Substance Abuse, Tobacco Dependency Denies: Dementia Past Surgical History Past Surgical History: Denies: Pacemaker Social History Information Source: Patient Smoking Status: Current Every Day Smoker Frequency of Alcohol Use: None Hx Recreational Drug Use: No Drugs: Marijuana Hx Prescription Drug Abuse: No - Advance Directive Resuscitation Status: Full Code Family History Family History: CVA, DM, Malignancy Parental Family History Reviewed: Yes Children Family History Reviewed: Yes Sibling(s) Family History Reviewed.: Yes Medication/Allergy Home Medications: No Home Medications 02/20/17 Allergies/Adverse Reactions: No Known Allergies Allergy (Verified 06/30/16 08:41) Review of Systems Constitutional: PRESENT: as per HPI, chills, fatigue, fever(s) Eyes: ABSENT: visual disturbances Ears: ABSENT: hearing changes Nose, Mouth, and Throat: PRESENT: as per HPI Cardiovascular: PRESENT: dyspnea on exertion. ABSENT: chest pain, edema, orthropnea, palpitations Respiratory: PRESENT: as per HPI, cough, dyspnea. ABSENT: sputum Gastrointestinal: ABSENT: abdominal pain, constipation, diarrhea, hematemesis, hematochezia, nausea, vomiting Genitourinary: ABSENT: dysuria, hematuria Musculoskeletal: ABSENT: joint swelling Integumentary: ABSENT: rash, wounds Neurological: ABSENT: abnormal gait, abnormal speech, confusion, dizziness, focal weakness, syncope Psychiatric: ABSENT: anxiety, depression, homidical ideation, suicidal ideation Endocrine: ABSENT: cold intolerance, heat intolerance, polydipsia, polyuria Hematologic/Lymphatic: ABSENT: easy bleeding, easy bruising Physical Exam Vital Signs: Temp Pulse Resp BP Pulse Ox 99.5 F 102 H 21 H 137/93 H 90 L 08/09/17 20:19 08/10/17 01:49 08/10/17 03:00 08/10/17 01:02 08/10/17 01:49 General appearance: PRESENT: cooperative, disheveled, mild distress, morbidly obese Head exam: PRESENT: atraumatic, normocephalic Eye exam: PRESENT: conjunctiva pink, EOMI, PERRLA. ABSENT: scleral icterus Ear exam: PRESENT: normal external ear exam Mouth exam: PRESENT: moist, tongue midline Neck exam: ABSENT: carotid bruit, JVD, lymphadenopathy, thyromegaly Respiratory exam: PRESENT: clear to auscultation armond, crackles, prolonged expiratory phas, rales, rhonchi, tachypnea. ABSENT: chest wall tenderness, wheezes Cardiovascular exam: PRESENT: gallop, RRR, +S1, +S2, systolic murmur Vascular exam: PRESENT: normal capillary refill GI/Abdominal exam: PRESENT: normal bowel sounds, soft. ABSENT: distended, guarding, mass, organolmegaly, rebound, tenderness Rectal exam: PRESENT: deferred Extremities exam: PRESENT: +1 edema Neurological exam: PRESENT: alert, awake, oriented to person, oriented to place , oriented to time, oriented to situation, CN II-XII grossly intact. ABSENT: motor sensory deficit Psychiatric exam: PRESENT: appropriate affect, normal mood. ABSENT: homicidal ideation, suicidal ideation Skin exam: PRESENT: dry, intact, warm. ABSENT: cyanosis, rash Results Impressions: Chest X-Ray 08/09/17 20:24 IMPRESSION: Diffuse increased interstitial and alveolar opacities bilaterally. Assessment & Plan - Diagnosis (1) Pneumonia Qualifiers: Pneumonia type: due to unspecified organism Laterality: bilateral Lung location: unspecified part of lung Qualified Code(s): J18.9 - Pneumonia, unspecified organism Is this a current diagnosis for this admission?: Yes Plan: Pneumonia care set deployed, incentive spirometry, albuterol and Atrovent, Flonase, follow-up CBC and culture (2) Heart murmur, systolic Is this a current diagnosis for this admission?: Yes Plan: Lower extremity edema, uncontrolled hypertension, 2D echo ordered (3) Obesity Is this a current diagnosis for this admission?: Yes Plan: Obtain TSH (4) Acute kidney injury Is this a current diagnosis for this admission?: Yes Plan: Avoid nephrotoxic meds and doses, obtain UA and IV fluid challenge, follow-up chemistry. - Time Time Spent: 50 to 70 Minutes
[2017-08-10 06:29] LABS: HEMOGLOBIN 13.9 g/dL (13.5-17.0); MEAN CORPUSCULAR HEMOGLOBIN 27.5 pg (27.0-33.4); MEAN CORPUSCULAR HGB CONC 33.8 g/dL (32.0-36.0); MEAN CORPUSCULAR VOLUME 81 fl (80-97); PLATELET COUNT 167 10^3/uL (150-450); RED BLOOD COUNT 5.05 10^6/uL (4.35-5.55); RED CELL DISTRIBUTION WIDTH 16.8 % (11.5-14.0)
[2017-08-10 06:42] LABS: ANION GAP 13 (5-19); BLOOD UREA NITROGEN 32 mg/dL (7-20); CALCIUM 8.5 mg/dL (8.4-10.2); CARBON DIOXIDE 15 mmol/L (22-30); CHLORIDE 105 mmol/L (98-107); GLUCOSE 187 mg/dL (75-110); POTASSIUM 4.3 mmol/L (3.6-5.0); SODIUM 132.5 mmol/L (137-145)
[2017-08-10] MEDS: HEPARIN SOD (PORCINE) 5,000 UNIT/ML 1 ML SYRINGE SUBCUT SCH ×3 (06:42→21:12)
[2017-08-10 06:57] LABS: ABSOLUTE LYMPHOCYTES# (MANUAL) 0.2 10^3/uL (0.5-4.7); ABSOLUTE MONOCYTES # (MANUAL) 0.2 10^3/uL (0.1-1.4); ABSOLUTE NEUTROPHILS# (MANUAL) 15.5 10^3/uL (1.7-8.2); BAND NEUTROPHILS % (MANUAL) 10 % (3-5); BASOPHILS % (MANUAL) 0 % (0-2); EOSINOPHILS % (MANUAL) 1 % (0-6); LYMPHOCYTES % (MANUAL) 1 % (13-45); MONOCYTES % (MANUAL) 1 % (3-13); SEGMENTED NEUTROPHILS % (MAN) 87 % (42-78); TOTAL CELLS COUNTED 100
[2017-08-10 06:59] LABS: ANISOCYTOSIS 1+; HYPOCHROMASIA SLIGHT; OVALOCYTES SLIGHT; PLATELET COMMENT ADEQUATE; PLATELET LARGE PRESENT; POIKILOCYTOSIS SLIGHT; TOXIC GRANULATION 1+; TOXIC VACUOLATION PRESENT
[2017-08-10] MEDS ORDERED: CEFTRIAXONE 1 GM/D5W RTU 1 GM/50 ML RTUPB IV SCH (10:00)
[2017-08-10] MEDS: CEFTRIAXONE SODIUM 1,000 MG in NORMAL SALINE 100 ML IV SCH (10:07)
[2017-08-10] MEDS: GUAIFENESIN 600 MG TABLET.SA PO SCH ×2 (10:08→21:12)
[2017-08-10] MEDS: AZITHROMYCIN 500 MG in DEXTROSE 5%-WATER 250 ML IV SCH (11:51)
--- NOTE | 2017-08-10 15:14 | PDOC PROGRESS REPORT ---
Subjective Progress Note for:: 08/10/17 Subjective:: The patient is a 46-year-old male with past medical history of tobacco dependence, morbid obesity, hypertension and noncompliance with medication and lifestyle who was admitted on 08/09/17 for bilateral pneumonia and acute renal failure. The patient was seen while still in the emergency department waiting transfer to a floor bed. He is found sitting upright to the edge of the stretcher on supplemental oxygen by nasal cannula 2 L/min. The oxygen was turned off while I was in the room with noted desaturation to 89%. He does confirm slight dyspnea and a continued productive cough. He denies fever, chills, chest pain, palpitations, abdominal pain, nausea, vomiting, and diarrhea. He states that he has had no further loose bowel movements. He has no other questions or concerns. Reason For Visit: CHF, ARF, PNEUMONIA Physical Exam Vital Signs: Temp Pulse Resp BP Pulse Ox 99.5 F 82 17 134/93 H 93 08/09/17 20:19 08/10/17 13:35 08/10/17 13:35 08/10/17 12:00 08/10/17 13:35 General appearance: PRESENT: no acute distress, obese, well-developed, well- nourished Head exam: PRESENT: atraumatic, normocephalic Eye exam: PRESENT: conjunctiva pink, EOMI, PERRLA. ABSENT: scleral icterus Ear exam: PRESENT: normal external ear exam Mouth exam: PRESENT: moist, tongue midline Neck exam: ABSENT: carotid bruit, JVD, lymphadenopathy, thyromegaly Respiratory exam: PRESENT: clear to auscultation armond, rhonchi, symmetrical, unlabored, wheezes - Slight expiratory wheezing bilaterally, other - Supplemental oxygen at 2 L/min. ABSENT: rales Cardiovascular exam: PRESENT: RRR, +S1, +S2. ABSENT: diastolic murmur, rubs, systolic murmur, tachycardia Pulses: PRESENT: normal dorsalis pedis pul Vascular exam: PRESENT: normal capillary refill GI/Abdominal exam: PRESENT: normal bowel sounds, soft. ABSENT: distended, guarding, mass, organolmegaly, rebound, tenderness Rectal exam: PRESENT: deferred Extremities exam: PRESENT: full ROM. ABSENT: calf tenderness, clubbing, pedal edema Neurological exam: PRESENT: alert, awake, oriented to person, oriented to place , oriented to time, oriented to situation, CN II-XII grossly intact. ABSENT: motor sensory deficit Psychiatric exam: PRESENT: appropriate affect, normal mood. ABSENT: homicidal ideation, suicidal ideation Skin exam: PRESENT: dry, intact, warm. ABSENT: cyanosis, rash Results Laboratory Results: 08/10/17 06:10 08/10/17 06:10 08/10/17 08/10/17 06:10 06:10 WBC 16.0 H RBC 5.05 Hgb 13.9 Hct 41.0 MCV 81 MCH 27.5 MCHC 33.8 RDW 16.8 H Plt Count 167 Seg Neutrophils % Not Reportable Lymphocytes % Not Reportable Monocytes % Not Reportable Eosinophils % Not Reportable Basophils % Not Reportable Absolute Neutrophils Not Reportable Absolute Lymphocytes Not Reportable Absolute Monocytes Not Reportable Absolute Eosinophils Not Reportable Absolute Basophils Not Reportable Sodium 132.5 L Potassium 4.3 Chloride 105 Carbon Dioxide 15 L Anion Gap 13 BUN 32 H Creatinine 1.92 H Est GFR ( Amer) 46 L Est GFR (Non-Af Amer) 38 L Glucose 187 H Calcium 8.5 08/10/17 06:10 Creatine Kinase 751 H Impressions: Chest X-Ray 08/09/17 20:24 IMPRESSION: Diffuse increased interstitial and alveolar opacities bilaterally. Assessment & Plan - Diagnosis (1) Pneumonia Qualifiers: Pneumonia type: due to unspecified organism Laterality: bilateral Lung location: unspecified part of lung Qualified Code(s): J18.9 - Pneumonia, unspecified organism Is this a current diagnosis for this admission?: Yes Plan: Patient is admitted to the medical floor on continuous cardiac telemetry. Supplemental oxygen as needed to maintain oxygen saturations greater than 92% He has empirically been placed on IV azithromycin and Rocephin. Will narrow antibiotics as blood cultures result. We will provide scheduled and as needed DuoNeb treatments. The patient is placed on Mucinex twice daily. Incentive spirometry to bedside; encourage hourly use while awake. (2) Acute kidney injury Is this a current diagnosis for this admission?: Yes Plan: Likely secondary to volume depletion in the setting of tachypnea related to pneumonia and diarrhea with poor p.o. intake. Creatinine on admission was noted to be elevated to 2.21 and is trending down with IV fluids. Currently at 1.92. The patient's creatinine kinase was also elevated at 818 which is trended down to 751. We will continue IV maintenance fluids. Avoid nephrotoxic medications. We will monitor with daily chemistry. (3) Heart murmur, systolic Is this a current diagnosis for this admission?: Yes Plan: Echocardiogram is pending. ProBNP is normal at 87. (4) Obesity Is this a current diagnosis for this admission?: Yes Plan: We will check thyroid panel. (5) Hyponatremia Is this a current diagnosis for this admission?: Yes Plan: Secondary to dehydration; will provide IV fluids. - Time Time Spent with patient: 25-34 minutes Medications reviewed and adjusted accordingly: Yes Anticipated discharge: Home - Inpatient Certification Based on my medical assessment, after consideration of the patient's comorbidities, presenting symptoms, or acuity I expect that the services needed warrant INPATIENT care.: Yes I certify that my determination is in accordance with my understanding of Medicare's requirements for reasonable and necessary INPATIENT services [42 CFR 412.3e].: Yes Medical Necessity: Need For IV Fluids, Need for Nebulizer Therapy and Monitoring of Response
[2017-08-10] MEDS: NORMAL SALINE 1000 ML 1,000 ML IV PRN (19:02)
--- NOTE | 2017-08-10 19:56 | XCELERA REPORT ---
[address] [address] Transthoracic Echocardiogram Report Name: PERSONROSARIO Age: 46 yrs Gender: Male : 1970 Patient Status: Inpatient Patient Location: [address] Study Date: 08/10/2017 09:21 AM Height: 69 in Weight: 279 lb BSA: 2.4 m2 Procedure: A complete two-dimensional transthoracic echocardiogram was performed (2D, M-mode, spectral and color flow Doppler). The study was technically difficult with many images being suboptimal in quality. Reason For Study: gallop Ordering Physician: BELLE SERRA Performed By: Clarissa Segura Interpretation Summary The left ventricular ejection fraction is within normal limits. There is mild concentric left ventricular hypertrophy. The left ventricle is grossly normal size. Doppler measurements suggest impaired left ventricular relaxation, which is associated with grade I/IV or mild diastolic dysfunction Regional wall motion abnormalities cannot be excluded due to limited visualization. Right ventricular function cannot be assessed due to poor image quality. The left atrial size is normal. There is a trace amount of mitral regurgitation There is no mitral valve stenosis. There is a trace amount of aortic regurgitation There is no aortic valve stenosis There is no tricuspid stenosis. No tricuspid regurgitation. The aortic root is not well visualized. The inferior vena cava appeared normal and decreased < 50% with respiration (RAP 10-15 mmHg) Minimal pericardial effusion. MMode/2D Measurements & Calculations RVDd: 2.5 cm LVIDd: 4.2 cm FS: 34.3 % Ao root diam: 3.5 cm IVSd: 1.2 cm LVIDs: 2.8 cm EDV(Teich): 80.3 ml LVPWd: 1.2 cm ESV(Teich): 29.2 ml Ao root area: 9.5 cm2 EF(Teich): 63.6 % Doppler Measurements & Calculations MV E max pedro: MV dec slope: Ao V2 max: LV V1 max P.2 cm/sec 225.8 cm/sec 16.9 mmHg MV A max pedro: 501.7 cm/sec2 Ao max PG: LV V1 max: 106.9 cm/sec MV dec time: 20.4 mmHg 205.4 cm/sec MV E/A: 0.91 0.19 sec PA V2 max: 128.3 cm/sec PA max P.6 mmHg Left Ventricle The left ventricle is grossly normal size. There is mild concentric left ventricular hypertrophy. The left ventricular ejection fraction is within normal limits. Doppler measurements suggest impaired left ventricular relaxation, which is associated with grade I/IV or mild diastolic dysfunction. Regional wall motion abnormalities cannot be excluded due to limited visualization. Right Ventricle The right ventricle is not well visualized secondary to technical limitations. Right ventricular function cannot be assessed due to poor image quality. Atria Right atrium not well visualized secondary to technical limitations. The left atrial size is normal. Interarterial septum not well visualized and not well dopplered. Cannot comment on ASD/PFO presence. Mitral Valve The mitral valve leaflets are sclerotic, but show no functional abnormalities. There is no mitral valve stenosis. There is a trace amount of mitral regurgitation. Aortic Valve The aortic valve is not well visualized secondary to technical limitations. There is no aortic valve stenosis. There is a trace amount of aortic regurgitation. Tricuspid Valve The tricuspid valve is not well visualized secondary to technical limitations. There is no tricuspid stenosis. No tricuspid regurgitation. Pulmonic Valve The pulmonic valve is not well visualized. Great Vessels The aortic root is not well visualized. The inferior vena cava appeared normal and decreased < 50% with respiration (RAP 10-15 mmHg). Effusions Minimal pericardial effusion. : BELLE SERRA > Franky Blunt
[2017-08-11] MEDS: IPRATROPIUM/ALBUTEROL 0.5-2.5 MG/3 ML AMPUL NEB SCH ×4 (02:10→20:29)
[2017-08-11] MEDS: NORMAL SALINE 1000 ML 1,000 ML IV PRN (04:07)
[2017-08-11] MEDS: HEPARIN SOD (PORCINE) 5,000 UNIT/ML 1 ML SYRINGE SUBCUT SCH ×3 (05:35→22:04)
[2017-08-11 05:52] LABS: HEMATOCRIT 38.2 % (37.9-51.0); HEMOGLOBIN 12.8 g/dL (13.5-17.0); MEAN CORPUSCULAR HEMOGLOBIN 27.4 pg (27.0-33.4); MEAN CORPUSCULAR HGB CONC 33.6 g/dL (32.0-36.0); MEAN CORPUSCULAR VOLUME 82 fl (80-97); PLATELET COUNT 192 10^3/uL (150-450); RED BLOOD COUNT 4.68 10^6/uL (4.35-5.55); RED CELL DISTRIBUTION WIDTH 16.8 % (11.5-14.0); WHITE BLOOD COUNT 17.6 10^3/uL (4.0-10.5)
[2017-08-11 06:40] LABS: ANION GAP 10 (5-19); BLOOD UREA NITROGEN 32 mg/dL (7-20); CALCIUM 8.8 mg/dL (8.4-10.2); CARBON DIOXIDE 18 mmol/L (22-30); CHLORIDE 107 mmol/L (98-107); GLUCOSE 129 mg/dL (75-110); POTASSIUM 4.3 mmol/L (3.6-5.0); SODIUM 134.6 mmol/L (137-145)
[2017-08-11 06:42] LABS: ABSOLUTE LYMPHOCYTES# (MANUAL) 1.2 10^3/uL (0.5-4.7); ABSOLUTE MONOCYTES # (MANUAL) 1.1 10^3/uL (0.1-1.4); ABSOLUTE NEUTROPHILS# (MANUAL) 15.3 10^3/uL (1.7-8.2); BAND NEUTROPHILS % (MANUAL) 1 % (3-5); BASOPHILS % (MANUAL) 0 % (0-2); EOSINOPHILS % (MANUAL) 0 % (0-6); LYMPHOCYTES % (MANUAL) 6 % (13-45); MONOCYTES % (MANUAL) 6 % (3-13); SEGMENTED NEUTROPHILS % (MAN) 86 % (42-78); TOTAL CELLS COUNTED 100
[2017-08-11 06:43] LABS: ANISOCYTOSIS 1+; BURR CELLS SLIGHT; OVALOCYTES SLIGHT; POIKILOCYTOSIS SLIGHT
[2017-08-11 06:44] LABS: PLATELET COMMENT ADEQUATE
[2017-08-11 07:45] LABS: FREE T4 (FREE THYROXINE) 1.68 ng/dL (0.78-2.19)
[2017-08-11 07:59] LABS: THYROID STIMULATING HORMONE 0.15 uIU/mL (0.47-4.68)
[2017-08-11] MEDS: GUAIFENESIN 600 MG TABLET.SA PO SCH ×2 (09:05→22:04)
[2017-08-11] MEDS: CEFTRIAXONE SODIUM 1,000 MG in NORMAL SALINE 100 ML IV SCH (09:05)
[2017-08-11] MEDS: AZITHROMYCIN 500 MG in DEXTROSE 5%-WATER 250 ML IV SCH (09:54)
--- NOTE | 2017-08-11 13:43 | PDOC PROGRESS REPORT ---
Subjective Progress Note for:: 08/11/17 Subjective:: The patient is a 46-year-old male with past medical history of tobacco dependence, morbid obesity, hypertension and noncompliance with medication and lifestyle who was admitted on 08/09/17 for bilateral pneumonia and acute renal failure. The patient was seen on morning rounds; he is found sitting upright to the recliner on room air. He states that he has been off oxygen for most of the night and has been ambulatory in his room without dyspnea. He does report a continued productive cough, however, states that this is slightly improved from yesterday. He denies fever, chills, chest pain, palpitations, abdominal pain, nausea, vomiting, and diarrhea. He has no other questions or concerns. Reason For Visit: CHF, ARF, PNEUMONIA Physical Exam Vital Signs: Temp Pulse Resp BP Pulse Ox 98.5 F 104 H 14 152/98 H 91 L 08/11/17 07:54 08/11/17 08:31 08/11/17 08:31 08/11/17 07:54 08/11/17 08:31 Intake & Output 08/10/17 08/11/17 08/12/17 06:59 06:59 06:59 Intake Total 2599 300 Output Total 250 Balance 2349 300 Weight 128.7 kg General appearance: PRESENT: no acute distress, obese, well-developed, well- nourished Head exam: PRESENT: atraumatic, normocephalic Eye exam: PRESENT: conjunctiva pink, EOMI, PERRLA. ABSENT: scleral icterus Ear exam: PRESENT: normal external ear exam Mouth exam: PRESENT: moist, tongue midline Neck exam: ABSENT: carotid bruit, JVD, lymphadenopathy, thyromegaly Respiratory exam: PRESENT: rhonchi - Occasional, symmetrical, unlabored, wheezes - Left middle ortiz. ABSENT: rales Cardiovascular exam: PRESENT: RRR, +S1, +S2, systolic murmur. ABSENT: diastolic murmur, rubs Pulses: PRESENT: normal dorsalis pedis pul Vascular exam: PRESENT: normal capillary refill GI/Abdominal exam: PRESENT: normal bowel sounds, soft. ABSENT: distended, guarding, mass, organolmegaly, rebound, tenderness Rectal exam: PRESENT: deferred Extremities exam: PRESENT: full ROM, pedal edema - Trace pedal edema bilaterally. ABSENT: calf tenderness, clubbing Neurological exam: PRESENT: alert, awake, oriented to person, oriented to place , oriented to time, oriented to situation, CN II-XII grossly intact. ABSENT: motor sensory deficit Psychiatric exam: PRESENT: appropriate affect, normal mood. ABSENT: homicidal ideation, suicidal ideation Skin exam: PRESENT: dry, intact, warm. ABSENT: cyanosis, rash Results Laboratory Results: 08/11/17 04:45 08/11/17 04:45 08/11/17 08/11/17 08/11/17 04:45 04:45 04:45 WBC 17.6 H RBC 4.68 Hgb 12.8 L Hct 38.2 MCV 82 MCH 27.4 MCHC 33.6 RDW 16.8 H Plt Count 192 Seg Neutrophils % Not Reportable Lymphocytes % Not Reportable Monocytes % Not Reportable Eosinophils % Not Reportable Basophils % Not Reportable Absolute Neutrophils Not Reportable Absolute Lymphocytes Not Reportable Absolute Monocytes Not Reportable Absolute Eosinophils Not Reportable Absolute Basophils Not Reportable Sodium 134.6 L Potassium 4.3 Chloride 107 Carbon Dioxide 18 L Anion Gap 10 BUN 32 H Creatinine 1.27 H Est GFR ( Amer) > 60 Est GFR (Non-Af Amer) > 60 Glucose 129 H Calcium 8.8 TSH 0.15 L Free T4 1.68 08/10/17 06:10 Creatine Kinase 751 H Impressions: Chest X-Ray 08/09/17 20:24 IMPRESSION: Diffuse increased interstitial and alveolar opacities bilaterally. Assessment & Plan - Diagnosis (1) Pneumonia Qualifiers: Pneumonia type: due to unspecified organism Laterality: bilateral Lung location: unspecified part of lung Qualified Code(s): J18.9 - Pneumonia, unspecified organism Is this a current diagnosis for this admission?: Yes Plan: Improving. Blood cultures: No growth at 24 hours Patient is admitted to the medical floor on continuous cardiac telemetry. Supplemental oxygen as needed to maintain oxygen saturations greater than 92% He has empirically been placed on IV azithromycin and Rocephin. Will narrow antibiotics as blood cultures result. We will provide scheduled and as needed DuoNeb treatments. The patient is placed on Mucinex twice daily. Incentive spirometry to bedside; encourage hourly use while awake. (2) Acute kidney injury Is this a current diagnosis for this admission?: Yes Plan: Improving; creatinine has trended down from 3.21-1.27. TIFFANY likely secondary to volume depletion in the setting of tachypnea related to pneumonia and diarrhea with poor p.o. intake. The patient's creatinine kinase was also elevated at 818 which is trended down to 751. We will continue IV maintenance fluids. Avoid nephrotoxic medications. We will monitor with daily chemistry. (3) Heart murmur, systolic Is this a current diagnosis for this admission?: Yes Plan: As above. (4) Obesity Is this a current diagnosis for this admission?: Yes Plan: TSH is actually slightly low at 0.15. T4 is normal. We will encourage dietary discretion. (5) Hyponatremia Is this a current diagnosis for this admission?: Yes Plan: Trending upward. Secondary to dehydration; will provide IV fluids. (6) Mild diastolic dysfunction Is this a current diagnosis for this admission?: Yes Plan: Echocardiogram revealed mild left ventricular hypertrophy, mild diastolic dysfunction, and trace mitral regurgitation with a preserved ejection fraction. ProBNP is normal at 87. The patient reports that he is on an unknown "water pill." As the patient was initially volume depleted with an acute kidney injury; will hold on diuretic therapy at this time. We will place the patient on losartan for elevated BP Echocardiogram results were reviewed with the patient; he was encouraged to follow-up with his primary care provider for monitoring. (7) Hypertension Is this a current diagnosis for this admission?: Yes Plan: Will start Losartan. - Time Time Spent with patient: 15-24 minutes Medications reviewed and adjusted accordingly: Yes Anticipated discharge: Home
[2017-08-12] MEDS: IPRATROPIUM/ALBUTEROL 0.5-2.5 MG/3 ML AMPUL NEB SCH ×4 (02:18→20:44)
[2017-08-12 06:31] LABS: ANION GAP 14 (5-19); BLOOD UREA NITROGEN 17 mg/dL (7-20); CARBON DIOXIDE 20 mmol/L (22-30); CHLORIDE 106 mmol/L (98-107); CREATINE KINASE 370 U/L (55-170); GLUCOSE 105 mg/dL (75-110); HEMATOCRIT 36.2 % (37.9-51.0); HEMOGLOBIN 12.2 g/dL (13.5-17.0); MEAN CORPUSCULAR HEMOGLOBIN 27.5 pg (27.0-33.4); MEAN CORPUSCULAR HGB CONC 33.8 g/dL (32.0-36.0); MEAN CORPUSCULAR VOLUME 81 fl (80-97); PLATELET COUNT 226 10^3/uL (150-450); POTASSIUM 4.3 mmol/L (3.6-5.0); RED BLOOD COUNT 4.46 10^6/uL (4.35-5.55); RED CELL DISTRIBUTION WIDTH 16.4 % (11.5-14.0); SODIUM 139.6 mmol/L (137-145); WHITE BLOOD COUNT 11.5 10^3/uL (4.0-10.5)
[2017-08-12] MEDS: HEPARIN SOD (PORCINE) 5,000 UNIT/ML 1 ML SYRINGE SUBCUT SCH ×3 (07:20→21:54)
[2017-08-12] MEDS: GUAIFENESIN 600 MG TABLET.SA PO SCH ×2 (09:14→21:54)
[2017-08-12] MEDS: LOSARTAN POTASSIUM 25 MG TABLET PO SCH (09:14)
[2017-08-12] MEDS: AZITHROMYCIN 500 MG in DEXTROSE 5%-WATER 250 ML IV SCH (09:48)
--- NOTE | 2017-08-12 13:20 | PDOC PROGRESS REPORT ---
Subjective Progress Note for:: 08/12/17 Subjective:: The patient is a 46-year-old male with past medical history of tobacco dependence, morbid obesity, hypertension and noncompliance with medication and lifestyle who was admitted on 08/09/17 for bilateral pneumonia and acute renal failure. The patient was seen on morning rounds; he is found sitting upright to the recliner on room air. He states that his dyspnea has resolved and that he has not required any supplemental oxygen for over a day now. He does report a continued productive cough. Of note, the patient was febrile overnight with a temperature of 100.5. He denies chest pain, palpitations, abdominal pain, nausea, vomiting, and diarrhea. He has no other questions or concerns. Reason For Visit: CHF, ARF, PNEUMONIA Physical Exam Vital Signs: Temp Pulse Resp BP Pulse Ox 98.9 F 92 13 141/88 H 95 08/12/17 11:47 08/12/17 11:47 08/12/17 11:47 08/12/17 11:47 08/12/17 11:47 Intake & Output 08/11/17 08/12/17 08/13/17 06:59 06:59 06:59 Intake Total 2599 2292 900 Output Total 250 Balance 2349 2292 900 Weight 128.7 kg 128.9 kg General appearance: PRESENT: no acute distress, obese, well-developed, well- nourished Head exam: PRESENT: atraumatic, normocephalic Eye exam: PRESENT: conjunctiva pink, EOMI, PERRLA. ABSENT: scleral icterus Ear exam: PRESENT: normal external ear exam Mouth exam: PRESENT: moist, tongue midline Neck exam: ABSENT: carotid bruit, JVD, lymphadenopathy, thyromegaly Respiratory exam: PRESENT: clear to auscultation armond, symmetrical, unlabored, wheezes - Expiratory wheezing noted throughout right lung ortiz; Clear on left. ABSENT: rales, rhonchi Cardiovascular exam: PRESENT: RRR, +S1, +S2. ABSENT: diastolic murmur, rubs, systolic murmur Pulses: PRESENT: normal dorsalis pedis pul Vascular exam: PRESENT: normal capillary refill GI/Abdominal exam: PRESENT: normal bowel sounds, soft. ABSENT: distended, guarding, mass, organolmegaly, rebound, tenderness Rectal exam: PRESENT: deferred Extremities exam: PRESENT: full ROM. ABSENT: calf tenderness, clubbing, pedal edema Neurological exam: PRESENT: alert, awake, oriented to person, oriented to place , oriented to time, oriented to situation, CN II-XII grossly intact. ABSENT: motor sensory deficit Psychiatric exam: PRESENT: appropriate affect, normal mood. ABSENT: homicidal ideation, suicidal ideation Skin exam: PRESENT: dry, intact, warm. ABSENT: cyanosis, rash Results Laboratory Results: 08/12/17 05:24 08/12/17 05:24 08/12/17 08/12/17 05:24 05:24 WBC 11.5 H RBC 4.46 Hgb 12.2 L Hct 36.2 L MCV 81 MCH 27.5 MCHC 33.8 RDW 16.4 H Plt Count 226 Sodium 139.6 Potassium 4.3 Chloride 106 Carbon Dioxide 20 L Anion Gap 14 BUN 17 Creatinine 0.96 Est GFR ( Amer) > 60 Est GFR (Non-Af Amer) > 60 Glucose 105 Calcium 9.0 08/10/17 08/12/17 06:10 05:24 Creatine Kinase 751 H 370 H Impressions: Chest X-Ray 08/09/17 20:24 IMPRESSION: Diffuse increased interstitial and alveolar opacities bilaterally. Assessment & Plan - Diagnosis (1) Pneumonia Qualifiers: Pneumonia type: due to unspecified organism Laterality: bilateral Lung location: unspecified part of lung Qualified Code(s): J18.9 - Pneumonia, unspecified organism Is this a current diagnosis for this admission?: Yes Plan: Improving. Slight fever overnight, tachypnea, dyspnea, hypoxia have resolved. Leukocytosis is trending down. Blood cultures: No growth at 48 hours. Review of previous culture results does show sputum culture positive for Pseudomonas in 2011. Will consider escalation of antibiotics if the patient's fever trends upwards. Patient is admitted to the medical floor. Supplemental oxygen as needed to maintain oxygen saturations greater than 92% He has empirically been placed on IV azithromycin and Rocephin. Will narrow antibiotics as blood cultures result. We will provide scheduled and as needed DuoNeb treatments. The patient is placed on Mucinex twice daily. Incentive spirometry to bedside; encourage hourly use while awake. Encourage ambulation in the hallway. (2) Acute kidney injury Is this a current diagnosis for this admission?: Yes Plan: Resolved. TIFFANY likely secondary to volume depletion in the setting of tachypnea related to pneumonia and diarrhea with poor p.o. intake. The patient's creatinine kinase was also elevated at 818 which is trended down to 370 Avoid nephrotoxic medications. We will monitor with daily chemistry. (3) Obesity Is this a current diagnosis for this admission?: Yes Plan: TSH is actually slightly low at 0.15. T4 is normal. We will encourage dietary discretion. (4) Hyponatremia Is this a current diagnosis for this admission?: Yes Plan: Resolved. (5) Mild diastolic dysfunction Is this a current diagnosis for this admission?: Yes Plan: Echocardiogram revealed mild left ventricular hypertrophy, mild diastolic dysfunction, and trace mitral regurgitation with a preserved ejection fraction. ProBNP is normal at 87. The patient reports that he is on an unknown "water pill." As the patient was initially volume depleted with an acute kidney injury; will hold on diuretic therapy at this time. We will place the patient on losartan for elevated BP Echocardiogram results were reviewed with the patient; he was encouraged to follow-up with his primary care provider for monitoring. (6) Hypertension Is this a current diagnosis for this admission?: Yes Plan: Cardiac diet. Will start Losartan. (7) Heart murmur, systolic Is this a current diagnosis for this admission?: Yes Plan: As above. - Time Time Spent with patient: 25-34 minutes Medications reviewed and adjusted accordingly: Yes Anticipated discharge: Home Within: within 24 hours
[2017-08-12] MEDS: CEFTRIAXONE SODIUM 1,000 MG in NORMAL SALINE 100 ML IV SCH (16:02)
[2017-08-13] MEDS: IPRATROPIUM/ALBUTEROL 0.5-2.5 MG/3 ML AMPUL NEB SCH ×3 (01:49→13:53)
[2017-08-13] MEDS: HEPARIN SOD (PORCINE) 5,000 UNIT/ML 1 ML SYRINGE SUBCUT SCH (06:31)
[2017-08-13 06:40] LABS: HEMOGLOBIN 11.9 g/dL (13.5-17.0); MEAN CORPUSCULAR HEMOGLOBIN 27.2 pg (27.0-33.4); MEAN CORPUSCULAR HGB CONC 33.1 g/dL (32.0-36.0); MEAN CORPUSCULAR VOLUME 82 fl (80-97); PLATELET COUNT 269 10^3/uL (150-450); RED BLOOD COUNT 4.39 10^6/uL (4.35-5.55); RED CELL DISTRIBUTION WIDTH 16.8 % (11.5-14.0); WHITE BLOOD COUNT 11.8 10^3/uL (4.0-10.5)
[2017-08-13 06:49] LABS: ANION GAP 7 (5-19); BLOOD UREA NITROGEN 9 mg/dL (7-20); CALCIUM 8.5 mg/dL (8.4-10.2); CARBON DIOXIDE 25 mmol/L (22-30); CHLORIDE 105 mmol/L (98-107); GLUCOSE 92 mg/dL (75-110); POTASSIUM 4.1 mmol/L (3.6-5.0); SODIUM 136.7 mmol/L (137-145)
[2017-08-13] MEDS: AZITHROMYCIN 500 MG in DEXTROSE 5%-WATER 250 ML IV SCH (10:18)
[2017-08-13] MEDS: GUAIFENESIN 600 MG TABLET.SA PO SCH (10:18)
[2017-08-13] MEDS: LOSARTAN POTASSIUM 25 MG TABLET PO SCH (10:18)
[2017-08-13] MEDS: CEFTRIAXONE SODIUM 1,000 MG in NORMAL SALINE 100 ML IV SCH (10:18)
[2017-08-13 12:59] VITALS: BP 149/97
--- NOTE | 2017-08-13 15:38 | PDOC DISCHARGE SUMMARY ---
General - Admit/Disc Date/PCP Admission Date/Primary Care Provider: 08/09/17 23:23 Discharge Date: 08/13/17 - Discharge Diagnosis (1) Pneumonia Is this a current diagnosis for this admission?: Yes (2) Acute kidney injury Is this a current diagnosis for this admission?: Yes (3) Obesity Is this a current diagnosis for this admission?: Yes (4) Hyponatremia Is this a current diagnosis for this admission?: Yes (5) Mild diastolic dysfunction Is this a current diagnosis for this admission?: Yes (6) Hypertension Is this a current diagnosis for this admission?: Yes (7) Heart murmur, systolic Is this a current diagnosis for this admission?: Yes - Additional Information Resuscitation Status: Full Code Discharge Diet: As Tolerated Discharge Activity: Activity As Tolerated, Balance Activity w/Rest, Slowly Increase Activity Prescriptions: Albuterol Sulfate [Proair HFA] 1 - 2 puff IH Q4 PRN #1 inhaler PRN Reason: Shortness Of Breath Cefuroxime Axetil [Ceftin 500 mg Tablet] 1 tab PO BID #14 tablet Guaifenesin [Mucinex Sr 600 mg Tablet.sa] 600 mg PO Q12 #30 tablet.sa Losartan Potassium [Cozaar 25 mg Tablet] 25 mg PO DAILY #30 tablet Home Medications: Acetaminophen [Tylenol 325 mg Tablet] 650 mg PO Q4HP PRN tablet 08/13/17 Albuterol Sulfate [Proair HFA] 1 - 2 puff IH Q4 PRN #1 inhaler 08/13/17 Cefuroxime Axetil [Ceftin 500 mg Tablet] 1 tab PO BID #14 tablet 08/13/17 Guaifenesin [Mucinex Sr 600 mg Tablet.sa] 600 mg PO Q12 #30 tablet.sa 08/13/17 Losartan Potassium [Cozaar 25 mg Tablet] 25 mg PO DAILY #30 tablet 08/13/17 History of Present Illness History of Present Illness: Per H&P by Dr. De La Cruz: ROSARIO ESPINOZA is a 46 year old male with a past medical history of tobacco dependence, morbid obesity, hypertension and noncompliance with medication and lifestyle. Patient complains of rhinorrhea, intermittent fever, joint pain, shortness of breath and a nonproductive cough. He has taken multiple bftk-lyn-swuqoxy preparations without significant improvement including ibuprofen. In the emergency room he is found to have bilateral infiltrates, leukocytosis, acute renal failure with a creatinine of 3.2 from a normal baseline 6 months ago. He is started on empiric antibiotics refer to the hospitalist for admission. Patient denies recent change in medications with exception of to tcek-cal-bqhndbq preparations. Hospital Course Hospital Course: The patient was admitted to the medical floor on continuous cardiac telemetry. He was provided IV fluids with subsequent resolution of his acute kidney injury. At time of discharge, the patient's creatinine is 0.86. He was empirically placed on IV azithromycin and ceftriaxone. He was supported with scheduled and as needed DuoNeb treatments, Mucinex, and supplemental oxygen. The patient's respiratory status improved rapidly and he was transitioned to room air. He now maintains oxygen saturations while ambulatory without dyspnea or tachycardia. The patient was noted to have a systolic murmur and bilateral leg edema. His cardiac function was evaluated with an echocardiogram which demonstrated mild left ventricular hypertrophy, mild diastolic dysfunction, and a preserved ejection fraction. The patient's proBNP and troponin were negative. He was noted to be hypertensive and placed on losartan 25 mg daily with resultant improvement in his blood pressures. Echocardiogram results were reviewed with the patient he was encouraged to establish with a primary care provider for follow-up. At time of discharge, the patient is in stable condition, maintaining oxygen saturations on room air while ambulatory, tolerating a regular diet. Blood cultures have no growth at 72 hours. He is provided prescriptions for an albuterol inhaler, Ceftin 500 grams twice daily 7 days, Mucinex, and losartan. A follow-up appointment with the [facility] has been made for . He is strongly encouraged to keep his follow-up appointment. Physical Exam Vital Signs: Temp Pulse Resp BP Pulse Ox 99.3 F 98 16 147/93 H 93 08/13/17 12:34 08/13/17 12:34 08/13/17 12:34 08/13/17 12:34 08/13/17 12:34 Intake & Output 08/12/17 08/13/17 08/14/17 06:59 06:59 06:59 Intake Total 2297 5404 Balance 2292 2711 Weight 128.9 kg 128.6 kg General appearance: PRESENT: no acute distress, obese, well-developed, well- nourished Head exam: PRESENT: atraumatic, normocephalic Eye exam: PRESENT: conjunctiva pink, EOMI, PERRLA. ABSENT: scleral icterus Ear exam: PRESENT: normal external ear exam Mouth exam: PRESENT: moist, tongue midline Neck exam: ABSENT: carotid bruit, JVD, lymphadenopathy, thyromegaly Respiratory exam: PRESENT: clear to auscultation armond, symmetrical, unlabored. ABSENT: rales, rhonchi, wheezes Cardiovascular exam: PRESENT: RRR, +S1, +S2. ABSENT: diastolic murmur, rubs, systolic murmur, tachycardia Pulses: PRESENT: normal dorsalis pedis pul Vascular exam: PRESENT: normal capillary refill GI/Abdominal exam: PRESENT: normal bowel sounds, soft. ABSENT: distended, guarding, mass, organolmegaly, rebound, tenderness Rectal exam: PRESENT: deferred Extremities exam: PRESENT: full ROM. ABSENT: calf tenderness, clubbing, pedal edema Neurological exam: PRESENT: alert, awake, oriented to person, oriented to place , oriented to time, oriented to situation, CN II-XII grossly intact. ABSENT: motor sensory deficit Psychiatric exam: PRESENT: appropriate affect, normal mood. ABSENT: homicidal ideation, suicidal ideation Skin exam: PRESENT: dry, intact, warm. ABSENT: cyanosis, rash Results Laboratory Results: 08/13/17 05:56 08/13/17 05:56 08/13/17 08/13/17 05:56 05:56 WBC 11.8 H RBC 4.39 Hgb 11.9 L Hct 36.0 L MCV 82 MCH 27.2 MCHC 33.1 RDW 16.8 H Plt Count 269 Sodium 136.7 L Potassium 4.1 Chloride 105 Carbon Dioxide 25 Anion Gap 7 BUN 9 Creatinine 0.86 Est GFR ( Amer) > 60 Est GFR (Non-Af Amer) > 60 Glucose 92 Calcium 8.5 08/10/17 08/12/17 06:10 05:24 Creatine Kinase 751 H 370 H Impressions: Chest X-Ray 08/09/17 20:24 IMPRESSION: Diffuse increased interstitial and alveolar opacities bilaterally. Qualifiers - * PATEINT BEING DISCHARGED WITH ANY OF THE FOLLOWING DIAGNOSIS?: Heart Failure HF Pt being discharged on ACEI for LVEF less than 40%?: No Reason(s) for not prescribing ACEI:: Not indicated - Preserved EF HF Pt being discharged on ARBS for LVEF less than 40%?: Yes HF Pt with Afib discharged with Warfarin?: No Reason(s) for not prescribing Warfarin:: Not indicated - No afib HF Pt discharged on evidence-based Beta Amor:: No Reason(s) for not prescribing evidence-based Beta Amor:: Not indicated
== END 2017-08-13 13:57 | disposition home or self-care (01) | DRG 194 ==
LOC: ER 19:53 → EH 23:23 → 3S 08-10 16:59
PROVIDERS: ADMIT Internal Medicine; ATTEND Internal Medicine
DX: J18.9 Pneumonia, unspecified organism (principal); N17.9 Acute kidney failure, unspecified; E87.1 Hypo-osmolality and hyponatremia; Z68.41 Body mass index [BMI] 40.0-44.9, adult; E86.0 Dehydration; I10 Essential (primary) hypertension; R01.1 Cardiac murmur, unspecified; E66.01 Morbid (severe) obesity due to excess calories; F17.210 Nicotine dependence, cigarettes, uncomplicated; Z91.14 Patient's other noncompliance with medication regimen
CPT/HCPCS: 36415; 71046; 80048; 80053; 80307; 81001; 82550; 82553; 83880; 84439; 84443; 84484; 85025; 85027; 87040; 87493; 93306; 94640; 94799; 99285; J0456; J0696; J1100; J1644; J3490; J7030; J7060; J7620

== ENCOUNTER → 2018-01-31 | Outpatient (CLI) | payer OTHER ==
--- NOTE | 2018-01-31 10:55 | RADIOLOGY REPORT (SQ) ---
EXAM DESCRIPTION: KNEE LEFT 2 VIEWS COMPLETED DATE/TIME: 01/31/2018 10:17 am REASON FOR STUDY: PAIN IN RT HIP AND LEFT KNEE M25.551 PAIN IN RIGHT HIP M25.562 PAIN IN LEFT KNEE COMPARISON: 12/27/2016 NUMBER OF VIEWS: Two views. TECHNIQUE: AP and lateral radiographic images acquired of the left knee. LIMITATIONS: None. FINDINGS: MINERALIZATION: Normal. BONES: No acute fracture or dislocation. No worrisome bone lesions. No significant osteophytes. JOINT: No effusion. No chondrocalcinosis. OTHER: No other significant finding. IMPRESSION: NEGATIVE STUDY OF THE LEFT KNEE. NO EXPLANATION FOR PAIN. TECHNICAL DOCUMENTATION: JOB ID: [id number] [employer]- All Rights Reserved Reading location - IP/workstation name: [email or web address]
--- NOTE | 2018-01-31 11:24 | RADIOLOGY REPORT (SQ) ---
EXAM DESCRIPTION: HIP RIGHT AP/LATERAL COMPLETED DATE/TIME: 01/31/2018 10:17 am REASON FOR STUDY: PAIN IN RT HIP AND LEFT KNEE M25.551 PAIN IN RIGHT HIP M25.562 PAIN IN LEFT KNEE COMPARISON: None. NUMBER OF VIEWS: Two views. TECHNIQUE: AP pelvis and additional frog-leg view of the right hip. LIMITATIONS: None. FINDINGS: MINERALIZATION: Normal. RIGHT HIP: No fracture or dislocation. No worrisome bone lesions. LEFT HIP: No fracture or dislocation. No worrisome bone lesions. PUBIS AND ISCHIUM: No fracture. PELVIS: No fracture. SACRUM: No fracture or dislocation. No worrisome bone lesions. LOWER LUMBAR SPINE: No fracture or dislocation. No worrisome bone lesions. No significant disc disea se. SOFT TISSUES: No findings. OTHER: No other significant finding. IMPRESSION: NEGATIVE STUDY OF THE RIGHT HIP. NO RADIOGRAPHIC EVIDENCE OF ACUTE INJURY. TECHNICAL DOCUMENTATION: JOB ID: [id number] [employer]- All Rights Reserved Reading location - IP/workstation name: [email or web address]
== END ==
LOC: CCC 09:57
DX: M25.551 Pain in right hip (principal); M25.562 Pain in left knee

== ENCOUNTER 2019-05-20 15:21 | Emergency (ER) | payer SELFPAY ==
[2019-05-20] MEDS ORDERED: ASPIRIN 81 MG TABLET, CHEWABLE PO ONE ×2 (15:47→19:00)
--- NOTE | 2019-05-20 15:47 | ER Document Report ---
ED Medical Screen (RME) - General Chief Complaint: Chest Tightness Stated Complaint: CHEST TIGHTNESS,FEELS HEAVY Time Seen by Provider: 05/20/19 15:44 [facility] Provider: [facility] [Primary Care Provider] - Follow up as needed Mode of Arrival: Ambulatory Information source: Patient Notes: 48-year-old male presented to ED for complaint of chest pain. He states it was in the lower substernal area about a week now but today it is moved up higher on the chest and now it feels like it is reaching grabbing and squeezing and then is going and squeezes again. He states his chest started doing that yesterday. He states that he continues to do that so he became concerned and came to the emergency room to have it checked out. He states he does have a history of high blood pressure. He states he is never had a stress test or cardiac cath. He states he is never been told he had high cholesterol. He states he smokes a pack a day no alcohol I have greeted and performed a rapid initial assessment of this patient. A comprehensive ED assessment and evaluation of the patient, analysis of test results and completion of medical decision making process will be conducted by an additional ED providers. TRAVEL OUTSIDE OF THE [place] IN LAST 30 DAYS: No - Related Data Allergies/Adverse Reactions: No Known Allergies Allergy (Verified 02/04/19 16:01) Past Medical History - Past Medical History Cardiac Medical History: Reports: Hx Hypertension Denies: Hx Congestive Heart Failure, Hx Hypercholesterolemia Pulmonary Medical History: Reports: Hx Bronchitis, Hx Pneumonia Denies: Hx Asthma Neurological Medical History: Denies: Hx Cerebrovascular Accident, Hx Seizures, Hx Parkinson's Disease Renal/ Medical History: Denies: Hx Peritoneal Dialysis Musculoskeltal Medical History: Reports Hx Arthritis, Reports Hx Musculoskeletal Deformity - chronic back pain, Reports Hx Musculoskeletal Trauma - Drains and sprains but no fractures Psychiatric Medical History: Denies: Hx Dementia Past Surgical History: Denies: Hx Pacemaker - Immunizations Immunizations up to date: No Hx Diphtheria, Pertussis, Tetanus Vaccination: No Physical Exam - Vital signs Vitals: Temp Pulse Resp BP Pulse Ox 98.3 F 88 18 183/98 H 98 05/20/19 15:28 05/20/19 15:28 05/20/19 15:28 05/20/19 15:28 05/20/19 15:28 Course - Vital Signs Vital signs: Temp Pulse Resp BP Pulse Ox 98.3 F 88 18 183/98 H 98 05/20/19 15:28 05/20/19 15:28 05/20/19 15:28 05/20/19 15:28 05/20/19 15:28 Doctor's Discharge - Discharge Referrals: [facility] [Primary Care Provider] - Follow up as needed
--- NOTE | 2019-05-20 16:25 | RADIOLOGY REPORT (SQ) ---
EXAM DESCRIPTION: CHEST 2 VIEWS COMPLETED DATE/TIME: 05/20/2019 4:01 pm REASON FOR STUDY: chest pain COMPARISON: 08/09/2017 EXAM PARAMETERS: NUMBER OF VIEWS: two views TECHNIQUE: Digital Frontal and Lateral radiographic views of the chest acquired. RADIATION DOSE: NA LIMITATIONS: none FINDINGS: LUNGS AND PLEURA: Interstitial prominence with mild bilateral effusions. No pneumothorax. MEDIASTINUM AND HILAR STRUCTURES: No masses or contour abnormalities. HEART AND VASCULAR STRUCTURES: Heart normal size. No evidence for failure. BONES: No acute findings. HARDWARE: None in the chest. OTHER: No other significant finding. IMPRESSION: Interstitial prominence with small bilateral effusions, right greater than left, and lik roseann edema. Atypical infection is not entirely excluded. TECHNICAL DOCUMENTATION: JOB ID: [id number] [employer]- All Rights Reserved Reading location - IP/workstation name: [email or web address]
[2019-05-20 16:31] LABS: ABSOLUTE BASOPHILS # (AUTO) 0.1 10^3/uL (0.0-0.2); ABSOLUTE EOSINOPHILS # (AUTO) 0.4 10^3/uL (0.0-0.6); ABSOLUTE LYMPHOCYTES (AUTO) 1.7 10^3/uL (0.5-4.7); ABSOLUTE MONOCYTES (AUTO) 0.6 10^3/uL (0.1-1.4); ABSOLUTE NEUT (AUTO) 3.1 10^3/uL (1.7-8.2); BASOPHILS % (AUTO) 2.1 % (0-2); EOSINOPHILS % (AUTO) 7.4 % (0-6); HEMATOCRIT 41.1 % (37.9-51.0); HEMOGLOBIN 13.7 g/dL (13.5-17.0); LYMPHOCYTES % (AUTO) 28.2 % (13-45); MEAN CORPUSCULAR HEMOGLOBIN 27.2 pg (27.0-33.4); MEAN CORPUSCULAR HGB CONC 33.3 g/dL (32.0-36.0); MEAN CORPUSCULAR VOLUME 82 fl (80-97); MONOCYTES % (AUTO) 9.7 % (3-13); PLATELET COUNT 270 10^3/uL (150-450); RED BLOOD COUNT 5.04 10^6/uL (4.35-5.55); RED CELL DISTRIBUTION WIDTH 18.4 % (11.5-14.0); SEGMENTED NEUTROPHILS % (AUTO) 52.6 % (42-78); TOTAL CELLS COUNTED % (AUTO) 100 %; WHITE BLOOD COUNT 5.9 10^3/uL (4.0-10.5)
[2019-05-20 16:45] LABS: ALBUMIN 4.1 g/dL (3.5-5.0); ALKALINE PHOSPHATASE 95 U/L (38-126); ANION GAP 10 (5-19); ASPARTATE AMINO TRANSFERASE 30 U/L (17-59); BILIRUBIN,DIRECT 0.1 mg/dL (0.0-0.4); BILIRUBIN,TOTAL 0.4 mg/dL (0.2-1.3); BLOOD UREA NITROGEN 10 mg/dL (7-20); CALCIUM 9.5 mg/dL (8.4-10.2); CARBON DIOXIDE 29 mmol/L (22-30); CHLORIDE 102 mmol/L (98-107); GLUCOSE 103 mg/dL (75-110); POTASSIUM 4.3 mmol/L (3.6-5.0); TOTAL PROTEIN 7.6 g/dL (6.3-8.2)
[2019-05-20 16:54] LABS: NT PRO BNP 23 pg/mL (<125)
[2019-05-20 16:55] LABS: TROPONIN I < 0.012 ng/mL
--- NOTE | 2019-05-20 19:14 | ER Document Report ---
ED Cardiac - General Chief Complaint: Chest Wall Pain Stated Complaint: CHEST TIGHTNESS,FEELS HEAVY Time Seen by Provider: 05/20/19 15:44 Primary Care Provider: [facility] [NO LOCAL MD] - Follow up as needed Mode of Arrival: Ambulatory Information source: Patient TRAVEL OUTSIDE OF THE [place] IN LAST 30 DAYS: No - HPI Was the onset of pain: Gradual Is the pain a: New problem Chest pain location: Substernal Quality of pain: Mild, Sharp Chest pain radiation location: None Severity now: Mild Severity at worst: Moderate Pain level currently: 0 Chest pain precipitating factors: Coughing Cardiac risk factors: Smoker Positive cardiac history: No Associated symptoms: None - Patient's chest wall pain is reproducible. - Related Data Allergies/Adverse Reactions: No Known Allergies Allergy (Verified 02/04/19 16:01) Past Medical History - General Information source: Patient - Social History Smoking Status: Current Every Day Smoker Frequency of alcohol use: None Drug Abuse: None Lives with: Family Family History: CVA, DM, Malignancy Patient has suicidal ideation: No Patient has homicidal ideation: No - Past Medical History Cardiac Medical History: Reports: Hx Hypertension, Hx Heart Murmur Denies: Hx Congestive Heart Failure, Hx Hypercholesterolemia Pulmonary Medical History: Reports: Hx Bronchitis, Hx Pneumonia Denies: Hx Asthma Neurological Medical History: Denies: Hx Cerebrovascular Accident, Hx Seizures, Hx Parkinson's Disease Renal/ Medical History: Denies: Hx Peritoneal Dialysis Musculoskeletal Medical History: Reports Hx Arthritis, Reports Hx Musculoskeletal Deformity - chronic back pain, Reports Hx Musculoskeletal Trauma - Drains and sprains but no fractures Psychiatric Medical History: Denies: Hx Dementia Past Surgical History: Denies: Hx Pacemaker - Immunizations Immunizations up to date: No Hx Diphtheria, Pertussis, Tetanus Vaccination: No Hx Pneumococcal Vaccination: 05/29/12 Review of Systems - Review of Systems Cardiovascular: See HPI Physical Exam - Vital signs Vitals: Temp Pulse Resp BP Pulse Ox 98.3 F 88 18 183/98 H 98 05/20/19 15:28 05/20/19 15:28 05/20/19 15:28 05/20/19 15:28 05/20/19 15:28 Interpretation: Normal - General General appearance: Appears well, Alert - HEENT Head: Normocephalic, Atraumatic Eyes: Normal Pupils: PERRL - Respiratory Respiratory status: No respiratory distress Chest status: Nontender Breath sounds: Normal Chest palpation: Normal - Cardiovascular Rhythm: Regular - Easily reproducible chest wall pain on the left upper sternal border at the sternal costal junction ,no rash present. Heart sounds: Normal auscultation Murmur: No Systolic murmur grade 1-6: 2 - Abdominal Inspection: Normal Distension: No distension Bowel sounds: Normal Tenderness: Nontender Organomegaly: No organomegaly - Back Back: Normal, Nontender - Extremities General upper extremity: Normal inspection, Nontender, Normal color, Normal ROM, Normal temperature General lower extremity: Normal inspection, Nontender, Normal color, Normal ROM, Normal temperature, Normal weight bearing, Other - Brawny edema lower extremities nontender no Homans signs. No: Colin's sign - Neurological Neuro grossly intact: Yes Cognition: Normal Orientation: AAOx4 [place] Coma Scale Eye Opening: Spontaneous [place] Coma Scale Verbal: Oriented [place] Coma Scale Motor: Obeys Commands [place] Coma Scale Total: 15 Speech: Normal Motor strength normal: LUE, RUE, LLE, RLE Sensory: Normal - Psychological Associated symptoms: Normal affect, Normal mood - Skin Skin Temperature: Warm Skin Moisture: Dry Skin Color: Normal Course - Vital Signs Vital signs: Temp Pulse Resp BP Pulse Ox 98.3 F 88 21 H 143/89 H 99 05/20/19 15:44 05/20/19 15:44 05/20/19 18:40 05/20/19 18:40 05/20/19 18:40 - Laboratory Result Diagrams: 05/20/19 16:06 05/20/19 16:06 Laboratory results interpreted by me: 05/20/19 16:06 RDW 18.4 H Eos % (Auto) 7.4 H Baso % (Auto) 2.1 H - Diagnostic Test Radiology reviewed: Image reviewed, Reports reviewed - EKG Interpretation by Me EKG shows normal: Sinus rhythm Rate: Normal - Nonspecific T wave abnormalities lateral leads. Discharge - Discharge Clinical Impression: Tenderness of chest wall, Heart murmur, systolic, Hypertension Disposition: HOME, SELF-CARE Instructions: Chest Wall Pain ([facility]) Additional Instructions: Recommended patient avoid exertional activity of upper extremities and chest wall. Also advised him to take [id number] ibuprofen or Tylenol as needed. Referrals: [facility] [NO LOCAL MD] - Follow up as needed
[2019-05-20 19:20] VITALS: BP 142/92
--- NOTE | 2019-05-21 07:49 | EKG REPORT ---
SEVERITY:- ABNORMAL ECG - SINUS RHYTHM NONSPECIFIC T ABNORMALITIES, LATERAL LEADS : Confirmed by: Som Arthur MD 21-May-2019 07:47:51
== END 2019-05-20 19:42 | disposition home or self-care (01) ==
LOC: ER 15:21
DX: R07.89 Other chest pain (principal); R01.1 Cardiac murmur, unspecified; I10 Essential (primary) hypertension; R05 Cough; F17.200 Nicotine dependence, unspecified, uncomplicated
CPT/HCPCS: 36415; 71046; 80053; 83735; 83880; 84484; 85025; 93005; 93010; 99285

== ENCOUNTER → 2019-10-06 | Outpatient (CLI) | payer OTHER ==
[2019-10-06 13:08] LABS: ABSOLUTE EOSINOPHILS # (AUTO) 0.5 10^3/uL (0.0-0.6); ABSOLUTE LYMPHOCYTES (AUTO) 1.5 10^3/uL (0.5-4.7); ABSOLUTE MONOCYTES (AUTO) 0.5 10^3/uL (0.1-1.4); ABSOLUTE NEUT (AUTO) 3.4 10^3/uL (1.7-8.2); BASOPHILS % (AUTO) 0.4 % (0-2); EOSINOPHILS % (AUTO) 8.7 % (0-6); HEMATOCRIT 40.2 % (37.9-51.0); LYMPHOCYTES % (AUTO) 25.3 % (13-45); MEAN CORPUSCULAR HGB CONC 34.7 g/dL (32.0-36.0); MEAN CORPUSCULAR VOLUME 81 fl (80-97); MONOCYTES % (AUTO) 8.1 % (3-13); PLATELET COUNT 266 10^3/uL (150-450); RED BLOOD COUNT 4.99 10^6/uL (4.35-5.55); RED CELL DISTRIBUTION WIDTH 17.9 % (11.5-14.0); SEGMENTED NEUTROPHILS % (AUTO) 57.5 % (42-78); TOTAL CELLS COUNTED % (AUTO) 100 %
[2019-10-06 13:29] LABS: ALBUMIN 4.2 g/dL (3.5-5.0); ALKALINE PHOSPHATASE 102 U/L (38-126); ANION GAP 9 (5-19); ASPARTATE AMINO TRANSFERASE 31 U/L (17-59); BILIRUBIN,DIRECT 0.2 mg/dL (0.0-0.4); BILIRUBIN,TOTAL 0.6 mg/dL (0.2-1.3); BLOOD UREA NITROGEN 16 mg/dL (7-20); CALCIUM 9.1 mg/dL (8.4-10.2); CARBON DIOXIDE 28 mmol/L (22-30); CHLORIDE 102 mmol/L (98-107); GLUCOSE 115 mg/dL (75-110); POTASSIUM 4.6 mmol/L (3.6-5.0); TOTAL PROTEIN 7.6 g/dL (6.3-8.2); TRIGLYCERIDES 179 mg/dL (<150)
[2019-10-06 13:39] LABS: VLDL CHOLESTEROL 35.8 mg/dL (10-31)
[2019-10-06 13:45] LABS: FREE T4 (FREE THYROXINE) 1.02 ng/dL (0.78-2.19)
[2019-10-06 13:59] LABS: THYROID STIMULATING HORMONE 1.12 uIU/mL (0.47-4.68)
[2019-10-06 15:47] LABS: DIRECT LDL 115 mg/dL (<100)
== END ==
LOC: OD 12:25
PROVIDERS: ATTEND Family Medicine
DX: Z00.00 Encounter for general adult medical examination without abnormal findings (principal)
CPT/HCPCS: 36415; 80053; 80061; 83036; 84439; 84443; 85025

== ENCOUNTER 2019-12-31 11:59 | Emergency (ER) | payer SELFPAY ==
[2019-12-31 12:09] VITALS: BP 179/105
--- NOTE | 2019-12-31 12:24 | ER Document Report ---
HPI - HPI Patient complains to provider of: Right eyelid swelling Time Seen by Provider: 12/31/19 12:13 Onset/Duration: Persistent Pain Level: Denies Context: Patient presents with right eyelid swelling and tearing with matting in the morning. Patient denies any change in vision. Patient denies any pain symptoms. 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 Lives with: Family Family History: CVA, DM, Malignancy - Past Medical History Cardiac Medical History: Reports: Hx Hypertension, Hx Heart Murmur Pulmonary Medical History: Reports: Hx Bronchitis, Hx Pneumonia Denies: Hx Asthma Neurological Medical History: Denies: Hx Cerebrovascular Accident, Hx Seizures, Hx Parkinson's Disease Renal/ Medical History: Denies: Hx Peritoneal Dialysis Musculoskeletal Medical History: Reports Hx Arthritis, Reports Hx Musculoskeletal Deformity - chronic back pain, Reports Hx Musculoskeletal Trauma - Drains and sprains but no fractures Psychiatric Medical History: Denies: Hx Dementia Surgical Hx: Negative Past Surgical History: Denies: Hx Pacemaker - Immunizations Immunizations up to date: No Hx Diphtheria, Pertussis, Tetanus Vaccination: No Hx Pneumococcal Vaccination: 05/29/12 Vertical Provider Document - CONSTITUTIONAL Agree With Documented VS: Yes Exam Limitations: No Limitations General Appearance: WD/WN, No Apparent Distress - INFECTION CONTROL TRAVEL OUTSIDE OF THE [place] IN LAST 30 DAYS: No - HEENT HEENT: Atraumatic, Normocephalic Notes: Patient with injection of right eye with mucopurulent drainage matting the eyelashes, mild swelling to the right upper eyelid, no ophthalmoplegia, ptosis, or pain with movement No corneal ulcer, foreign body or dendrite, no fluorescein uptake - NECK Neck: Normal Inspection - RESPIRATORY Respiratory: No Respiratory Distress - BACK Back: Normal Inspection - MUSCULOSKELETAL/EXTREMETIES Musculoskeletal/Extremeties: MAEW - NEURO Level of Consciousness: Awake, Alert, Appropriate Motor/Sensory: No Motor Deficit - DERM Integumentary: Warm, Dry, No Rash Course - Re-evaluation Re-evalutation: 12/31/19 12:23 Patient with findings worrisome for conjunctivitis, no concern for orbital or preseptal cellulitis at this time. Return precautions discussed with patient. - Vital Signs Vital signs: Temp Pulse Resp BP Pulse Ox 99.9 F 81 20 179/105 H 98 12/31/19 12:07 12/31/19 12:07 12/31/19 12:07 12/31/19 12:07 12/31/19 12:07 Discharge - Discharge Clinical Impression: Conjunctivitis Qualifiers: Conjunctivitis type: acute Acute conjunctivitis type: unspecified Laterality: right Qualified Code(s): H10.31 - Unspecified acute conjunctivitis, right eye Condition: Stable Disposition: HOME, SELF-CARE Instructions: Antibiotic Therapy ([facility]), Conjunctivitis ([facility]), Eyedrop Use ([facility]) Additional Instructions: Return immediately for any new or worsening symptoms Followup with your primary care provider, call tomorrow to make a followup appointment Good handwashing Follow-up with ophthalmology for any persistent problems Prescriptions: Polymyxin B Sulfate/Tmp [Polytrim Oph Soln 10 ml] 1 drop RT_EYE ASDIR #1 bottle Forms: Return to Work Referrals: [facility] [Primary Care Provider] - Follow up as needed [facility] [Provider Group] - Follow up as needed
== END 2019-12-31 12:36 | disposition home or self-care (01) ==
LOC: ER 11:59
DX: H10.31 Unspecified acute conjunctivitis, right eye (principal); I10 Essential (primary) hypertension; F17.200 Nicotine dependence, unspecified, uncomplicated
CPT/HCPCS: 99282

== ENCOUNTER 2020-02-25 21:43 | Emergency (ER) | payer SELFPAY ==
--- NOTE | 2020-02-25 22:41 | ER Document Report ---
ED Medical Screen (RME) - General Chief Complaint: Abdominal Pain Stated Complaint: SHARP STOMACH PAIN Time Seen by Provider: 02/25/20 22:38 Primary Care Provider: ABE HAY DO [Primary Care Provider] - Follow up as needed Notes: Patient is a 49-year-old male presents emergency department with a chief complaint of right upper quadrant pain. Patient reports this is been present for about 1 week. Patient reports is worse with cough. Patient reports that recently he is getting over a cold. Patient states he has had some productive cough. Patient denies fever. TRAVEL OUTSIDE OF THE [place] IN LAST 30 DAYS: No - Related Data Allergies/Adverse Reactions: No Known Allergies Allergy (Verified 12/31/19 12:13) Home Medications: HTN MEDS Past Medical History - Social History Frequency of alcohol use: None Drug Abuse: None - Past Medical History Cardiac Medical History: Reports: Hx Hypertension, Hx Heart Murmur Denies: Hx Congestive Heart Failure, Hx Hypercholesterolemia Pulmonary Medical History: Reports: Hx Bronchitis, Hx Pneumonia Denies: Hx Asthma Neurological Medical History: Denies: Hx Cerebrovascular Accident, Hx Seizures, Hx Parkinson's Disease Renal/ Medical History: Denies: Hx Peritoneal Dialysis Musculoskeltal Medical History: Reports Hx Arthritis, Reports Hx Musculoskeletal Deformity - chronic back pain, Reports Hx Musculoskeletal Trauma - Drains and sprains but no fractures Psychiatric Medical History: Denies: Hx Dementia Past Surgical History: Denies: Hx Pacemaker - Immunizations Immunizations up to date: No Hx Diphtheria, Pertussis, Tetanus Vaccination: No Physical Exam - Vital signs Vitals: Temp Pulse Resp BP Pulse Ox 98.6 F 102 H 22 H 168/90 H 95 02/25/20 22:14 02/25/20 22:14 02/25/20 22:14 02/25/20 22:14 02/25/20 22:14 Course - Re-evaluation Re-evalutation: 02/25/20 22:40 Abdomen is round, slight tenderness in between the epigastric and right upper quadrant area. Will obtain a ultrasound, chest x-ray as well as basic labs. Patient no acute distress. I have greeted and performed a rapid initial assessment of this patient. A comprehensive ED assessment and evaluation of the patient, analysis of test results and completion of the medical decision making process will be conducted by additional ED providers. - Vital Signs Vital signs: Temp Pulse Resp BP Pulse Ox 98.6 F 102 H 22 H 168/90 H 95 02/25/20 22:14 02/25/20 22:14 02/25/20 22:14 02/25/20 22:14 02/25/20 22:14 Doctor's Discharge - Discharge Referrals: ABE HAY DO [Primary Care Provider] - Follow up as needed
--- NOTE | 2020-02-25 23:35 | RADIOLOGY REPORT (SQ) ---
EXAM DESCRIPTION: CLINICAL HISTORY: 49 years Male Cough COMPARISON: 08/09/2017, 05/20/2019 FINDINGS: Cardiomediastinal silhouette is unchanged. Prominent yobany particularly on the right which is also unchanged. Patchy densities in the lung bases. No pleural fluid or pneumothorax. Some blunting of the right costophrenic angle which appears stable with stable areas of pleural thickening in the apices. IMPRESSION: Patchy densities in the lung bases which are nonspecific. Positive for pulmonary opacities. Differential diagnosis includes viral infections.
--- NOTE | 2020-02-26 00:15 | RADIOLOGY REPORT (SQ) ---
EXAM DESCRIPTION: US ABDOMEN LIMITED COMPLETED DATE/TME: 02/25/2020 22:38 CLINICAL HISTORY: 49 years, Male, Cough/RUQ, epigastric pain COMPARISON: None. TECHNIQUE: Limited right upper quadrant ultrasound LIMITATIONS: None. FINDINGS: Echogenic appearance to the liver consistent with fatty infiltrative change. The gallbladder is contracted. No definitive gallstones. CBD measures 2.7 mm. Visualized right kidney, abdominal aorta, inferior vena cava are unremarkable. Pancreas not seen due to bowel gas. No ascites IMPRESSION: Fatty infiltrative change to the liver. Remainder is unremarkable copyright 2011 [employer]- All Rights Reserved
[2020-02-26 03:03] LABS: ABSOLUTE BASOPHILS # (AUTO) 0.1 10^3/uL (0.0-0.2); ABSOLUTE EOSINOPHILS # (AUTO) 0.6 10^3/uL (0.0-0.6); ABSOLUTE LYMPHOCYTES (AUTO) 1.8 10^3/uL (0.5-4.7); ABSOLUTE MONOCYTES (AUTO) 0.6 10^3/uL (0.1-1.4); BASOPHILS % (AUTO) 1.5 % (0-2); EOSINOPHILS % (AUTO) 8.2 % (0-6); HEMATOCRIT 39.8 % (37.9-51.0); HEMOGLOBIN 13.2 g/dL (13.5-17.0); LYMPHOCYTES % (AUTO) 25.7 % (13-45); MEAN CORPUSCULAR HEMOGLOBIN 27.3 pg (27.0-33.4); MEAN CORPUSCULAR HGB CONC 33.3 g/dL (32.0-36.0); MEAN CORPUSCULAR VOLUME 82 fl (80-97); MONOCYTES % (AUTO) 8.1 % (3-13); PLATELET COUNT 247 10^3/uL (150-450); RED BLOOD COUNT 4.85 10^6/uL (4.35-5.55); RED CELL DISTRIBUTION WIDTH 18.5 % (11.5-14.0); SEGMENTED NEUTROPHILS % (AUTO) 56.5 % (42-78); TOTAL CELLS COUNTED % (AUTO) 100 %
[2020-02-26 03:21] LABS: ALKALINE PHOSPHATASE 97 U/L (38-126); ANION GAP 10 (5-19); ASPARTATE AMINO TRANSFERASE 28 U/L (17-59); BILIRUBIN,DIRECT 0.3 mg/dL (0.0-0.4); BILIRUBIN,TOTAL 0.6 mg/dL (0.2-1.3); BLOOD UREA NITROGEN 11 mg/dL (7-20); CALCIUM 9.2 mg/dL (8.4-10.2); CARBON DIOXIDE 27 mmol/L (22-30); CHLORIDE 103 mmol/L (98-107); GLUCOSE 116 mg/dL (75-110); POTASSIUM 4.4 mmol/L (3.6-5.0); TOTAL PROTEIN 7.3 g/dL (6.3-8.2)
[2020-02-26 05:59] VITALS: BP 139/84
--- NOTE | 2020-02-26 06:08 | ER Document Report ---
ED GI/ - General Chief Complaint: Abdominal Pain Stated Complaint: SHARP STOMACH PAIN Time Seen by Provider: 02/25/20 22:38 Primary Care Provider: ABE HAY DO [Primary Care Provider] - Follow up in 3-5 days Notes: Patient is a 49-year-old male presents emergency department with a chief complaint of abdominal pain. Patient states that he has had abdominal pain for the past few weeks. States it is in his mid upper abdomen. Patient reports he has had a "cold" for the past few weeks also. States he is "getting over it" and denies any fever. Denies any nausea, vomiting, or diarrhea. Denies alcohol use. States he has also had lower extremity edema that has gotten progressively worse over time. TRAVEL OUTSIDE OF THE [place] IN LAST 30 DAYS: No - Related Data Allergies/Adverse Reactions: No Known Allergies Allergy (Verified 12/31/19 12:13) Home Medications: HTN MEDS Past Medical History - Social History Smoking Status: Current Every Day Smoker Frequency of alcohol use: None Drug Abuse: None Family History: CVA, DM, Malignancy - Past Medical History Cardiac Medical History: Reports: Hx Hypertension, Hx Heart Murmur Denies: Hx Congestive Heart Failure, Hx Hypercholesterolemia Pulmonary Medical History: Reports: Hx Bronchitis, Hx Pneumonia Denies: Hx Asthma Neurological Medical History: Denies: Hx Cerebrovascular Accident, Hx Seizures, Hx Parkinson's Disease Renal/ Medical History: Denies: Hx Peritoneal Dialysis Musculoskeletal Medical History: Reports Hx Arthritis, Reports Hx Musculoskeletal Deformity - chronic back pain, Reports Hx Musculoskeletal Trauma - Drains and sprains but no fractures Psychiatric Medical History: Denies: Hx Dementia Past Surgical History: Denies: Hx Pacemaker - Immunizations Immunizations up to date: No Hx Diphtheria, Pertussis, Tetanus Vaccination: No Hx Pneumococcal Vaccination: 05/29/12 Review of Systems - Review of Systems Notes: REVIEW OF SYSTEMS: CONSTITUTIONAL : Denies recent illness. Denies recent unintentional weight loss. Denies fever, chills, or sweats. EENT: Denies eye, ear, throat, or mouth pain, discharge, or symptoms. See HPI. CARDIOVASCULAR: Denies chest pain. RESPIRATORY: See HPI. GASTROINTESTINAL: See HPI. GENITOURINARY: Denies difficulty urinating, burning, blood in urine, urgency or frequency. MUSCULOSKELETAL: Denies neck and back pain. Denies joint pain or swelling. SKIN: Denies rash, itchiness, or lesions HEMATOLOGIC : Denies easy bruising or bleeding. LYMPHATIC: Denies swollen, painful, enlarged glands. NEUROLOGICAL: Denies no numbness or tingling denies weakness. Denies headache. Denies altered mental status. Denies alteration in speech. PSYCHIATRIC: Denies stress, anxiety, alteration in sleep patterns, or d epression. All other systems reviewed and negative. Physical Exam - Vital signs Vitals: Temp Pulse Resp BP Pulse Ox 98.6 F 102 H 22 H 168/90 H 95 02/25/20 22:14 02/25/20 22:14 02/25/20 22:14 02/25/20 22:14 02/25/20 22:14 - Notes Notes: PHYSICAL EXAMINATION: GENERAL: Appears obese, no acute distress. HEAD: Normocephalic, atraumatic. EYES: PERRL, conjunctiva normal, all extraocular movements intact, sclera nonicteric ENT: Moist mucous membranes. Clear rhinorrhea noted. NECK: Supple, no noticeable swelling, redness, rash. Normal range of motion. LUNGS: Equal breath sounds bilaterally and clear to auscultation. No wheezes rales or rhonchi. CARDIOVASCULAR: S1-S2, regular rate, regular rhythm. Radial pulses 2+, normal. ABDOMEN: Normoactive bowel sounds. Soft, mildly tender mid upper abdomen, no guarding, no rebound tenderness, and no masses palpated. EXTREMITIES: Normal strength and range of motion, no pitting or edema. No cyanosis. Venous stasis noted to bilateral lower extremities. NEUROLOGICAL: Moves all extremities upon command. Strength 5/5 in all extremities. PSYCH: Normal mood, normal affect. SKIN: Warm, dry. No rash, lesions, ulcerations noted. Normal skin turgor. Course - Re-evaluation Re-evalutation: 02/26/20 Hematology is unremarkable, other than a slightly low hemoglobin of 13.2. Chemistries are unremarkable. LFTs are normal. Lipase is 785, consistent with pancreatitis. Patient is able to tolerate oral fluids. Counseled patient on pancreatitis. Chest x-ray shows patchy densities in the lung bases that are nonspecific positive for pulmonary opacities. We will start the patient on azithromycin. He is to follow-up with his primary care provider. Advised him to get tested for COVID on an outpatient basis, as it takes 3 days to get his results from the hospital. He is in agreement with this plan. I have a low suspicion for any life-threatening etiology at this time. Patient denies any chest pain. Follow-up precautions were given. Verbal discharge instructions were given to the patient. They verbalized understanding. They are stable for discharge. - Vital Signs Vital signs: Temp Pulse Resp BP Pulse Ox 97.9 F 81 20 139/84 H 95 02/26/20 05:58 02/26/20 05:58 02/26/20 05:58 02/26/20 05:58 02/26/20 05:58 - Laboratory Result Diagrams: 02/26/20 02:52 02/26/20 02:52 Laboratory results interpreted by me: 02/26/20 02/26/20 02:52 02:52 Hgb 13.2 L RDW 18.5 H Eos % (Auto) 8.2 H Glucose 116 H Lipase 785.1 H Discharge - Discharge Clinical Impression: Upper respiratory infection, viral Pancreatitis Qualifiers: Chronicity: acute Pancreatitis type: unspecified pancreatitis type Acute pancreatitis complication: unspecified Qualified Code(s): K85.90 - Acute p ancreatitis without necrosis or infection, unspecified Abdominal pain Qualifiers: Abdominal location: unspecified location Qualified Code(s): R10.9 - Unspecified abdominal pain Pneumonia Qualifiers: Pneumonia type: due to unspecified organism Laterality: unspecified laterality Lung location: unspecified part of lung Qualified Code(s): J18.9 - Pneumonia, unspecified organism Condition: Stable Disposition: HOME, SELF-CARE Additional Instructions: Pancreatitis Pancreatitis is an inflammation of the pancreas, an organ at the back of your abdomen. The pancreas produces insulin and enzymes that digest your food. Pancreatitis can be caused by gallstones in the bile duct, by alcohol or viruses, or by excess fat or calcium in the blood stream. Occasionally, pancreatitis occurs when a stomach ulcer flores through into the pancreas. We try to find the cause of pancreatitis, but some tests can't be done until the pancreas heals. The usual symptoms of pancreatitis are pain in the pit of the stomach that goes straight through to the back, vomiting, and low-grade fever. Severe cases require hospital admission, but many patients with mild pancreatitis do well at home. You will probably need medicine for pain and for vomiting. Sometimes we prescribe medicine to decrease stomach acid secretion and to decrease flow of pancreatic juices. Start with a diet of clear liquids (soda pop, juices). When the pain is decreasing, you can add some simple starches (potato, toast, applesauce). Avoid proteins and fats until you are completely painfree. When you're better, your doctor may suggest treatment to prevent future pancreatitis (such as gallbladder removal). Avoid alcohol forever. Get i mmediate treatment for any future episodes. Contact your doctor at once or return here if you have increasing pain, shortness of breath, general swelling, increasing size of the abdomen, continued vomiting, muscle spasms, or other new symptoms. You have been diagnosed with a pneumonia. It is very important that you take all of your antibiotics until they are gone even if you are feeling better. Please return to the emergency department immediately if you began having worsening shortness of breath, become confused, have worsening pain, pass out, have persistent vomiting that prevents you from being able to drink fluids for more than 12 hours, or have any other symptoms that are worrisome to you. Please follow-up with your primary care doctor in the next 1-2 days. Prescriptions: Azithromycin [Zithromax 250 mg Tablet] 250 mg PO ASDIR PRN #6 tablet PRN Reason: Forms: Return to Work Referrals: ABE HAY DO [Primary Care Provider] - Follow up in 3-5 days
== END 2020-02-26 06:20 | disposition home or self-care (01) ==
LOC: ER 21:43
DX: K85.90 Acute pancreatitis without necrosis or infection, unspecified (principal); J18.9 Pneumonia, unspecified organism; J06.9 Acute upper respiratory infection, unspecified; B97.89 Other viral agents as the cause of diseases classified elsewhere; I10 Essential (primary) hypertension; F17.200 Nicotine dependence, unspecified, uncomplicated; Z79.899 Other long term (current) drug therapy
CPT/HCPCS: 36415; 71046; 76705; 80053; 83690; 85025; 99284

== ENCOUNTER 2020-03-22 06:24 | Emergency (ER) | payer SELFPAY ==
[2020-03-22 06:32] VITALS: BP 135/62
[2020-03-22] MEDS ORDERED: ACETAMINOPHEN 325 MG TABLET PO ONE (06:59)
[2020-03-22 07:41] LABS: APPEARANCE,URINE CLEAR; BILIRUBIN,URINE NEGATIVE (NEGATIVE); COLOR,URINE YELLOW; GLUCOSE, URINE NEGATIVE (NEGATIVE); KETONES,URINE NEGATIVE (NEGATIVE); LEUKOCYTE ESTERASE,URINE SMALL (NEGATIVE); NITRITE,URINE NEGATIVE (NEGATIVE); PROTEIN,URINE 30 mg/dL (NEGATIVE)
[2020-03-22] MEDS ORDERED: ONDANSETRON HCL INJ/PF 4 MG/2 ML SDV IV ONE (07:58)
[2020-03-22] MEDS ORDERED: NORMAL SALINE 1000 ML 1,000 ML IV ONE (07:58)
[2020-03-22 08:06] LABS: URINE AMPHETAMINES SCREEN NEGATIVE; URINE BARBITURATES SCREEN NEGATIVE; URINE BENZODIAZEPINES SCREEN NEGATIVE; URINE COCAINE SCREEN NEGATIVE; URINE METHADONE SCREEN NEGATIVE; URINE PHENCYCLIDINE SCREEN NEGATIVE
[2020-03-22 08:08] LABS: URINE MARIJUANA (THC) SCREEN UNCONFIRMED POSITIVE
[2020-03-22 08:29] LABS: HEMATOCRIT 37.6 % (37.9-51.0); HEMOGLOBIN 12.7 g/dL (13.5-17.0); MEAN CORPUSCULAR HGB CONC 33.9 g/dL (32.0-36.0); MEAN CORPUSCULAR VOLUME 80 fl (80-97); PLATELET COUNT 214 10^3/uL (150-450); RED BLOOD COUNT 4.71 10^6/uL (4.35-5.55); RED CELL DISTRIBUTION WIDTH 18.8 % (11.5-14.0); WHITE BLOOD COUNT 20.9 10^3/uL (4.0-10.5)
--- NOTE | 2020-03-22 08:41 | RADIOLOGY REPORT (SQ) ---
EXAM DESCRIPTION: CHEST SINGLE VIEW IMAGES COMPLETED DATE/TIME: 03/22/2020 7:21 am REASON FOR STUDY: 37; fever COMPARISON: 02/25/2020. 08/09/2017. EXAM PARAMETERS: NUMBER OF VIEWS: One view. TECHNIQUE: Single frontal radiographic view of the chest acquired. RADIATION DOSE: NA LIMITATIONS: None. FINDINGS: LUNGS AND PLEURA: Improved aeration in both lungs. Trace right pleural effusion/pleural s carring is stable. No focal consolidation or pneumothorax. MEDIASTINUM AND HILAR STRUCTURES: Prominent right hilum is unchanged. No pulmonary vascular congesti on. HEART AND VASCULAR STRUCTURES: Heart normal in size. Normal vasculature. BONES: No acute findings. HARDWARE: None in the chest. OTHER: No other significant finding. IMPRESSION: Improved aeration in both lungs since prior, consistent with resolved infectious/ inflam matory process. Chronic pleural and parenchymal scarring on the right is stable. Prominent right pe rihilar region, unchanged. No evidence of acute cardiopulmonary disease. TECHNICAL DOCUMENTATION: JOB ID: [id number] 2010 [employer]- All Rights Reserved Reading location - IP/workstation name: [email or web address]
[2020-03-22 08:42] LABS: ALBUMIN 3.9 g/dL (3.5-5.0); ALKALINE PHOSPHATASE 97 U/L (38-126); ANION GAP 9 (5-19); ASPARTATE AMINO TRANSFERASE 37 U/L (17-59); BILIRUBIN,DIRECT 0.5 mg/dL (0.0-0.4); BLOOD UREA NITROGEN 15 mg/dL (7-20); CARBON DIOXIDE 29 mmol/L (22-30); CHLORIDE 97 mmol/L (98-107); GLUCOSE 115 mg/dL (75-110); POTASSIUM 3.9 mmol/L (3.6-5.0); TOTAL PROTEIN 7.2 g/dL (6.3-8.2)
[2020-03-22 08:51] LABS: ABSOLUTE LYMPHOCYTES# (MANUAL) 0.8 10^3/uL (0.5-4.7); ABSOLUTE MONOCYTES # (MANUAL) 0.2 10^3/uL (0.1-1.4); BAND NEUTROPHILS % (MANUAL) 1 % (3-5); BASOPHILS % (MANUAL) 1 % (0-2); EOSINOPHILS % (MANUAL) 0 % (0-6); LYMPHOCYTES % (MANUAL) 3 % (13-45); MONOCYTES % (MANUAL) 1 % (3-13); SEGMENTED NEUTROPHILS % (MAN) 93 % (42-78); TOTAL CELLS COUNTED 100
[2020-03-22 08:53] LABS: ANISOCYTOSIS 1+; HYPOCHROMASIA SLIGHT; PLATELET COMMENT ADEQUATE
--- NOTE | 2020-03-22 08:55 | ER Document Report ---
ED Fever - General Chief Complaint: Fever Stated Complaint: CHILLS/FEVER/DIARRHEA Time Seen by Provider: 03/22/20 07:53 Primary Care Provider: ABE HAY DO [Primary Care Provider] - Follow up as needed Notes: HPI: Very well-appearing 49-year-old male who presents today with the onset of multiple bouts of nonbloody diarrhea yesterday. He denies any nausea, vomiting, abdominal pain, flank pain, dysuria, cough, shortness of breath. No headache or neck pain. No rash appreciated. Patient has a history supposedly of blood pressure and chronic lymphedema. No lightheadedness or dizziness appreciated. ROS: See HPI All other review of systems reviewed and otherwise negative Reviewed vital signs and nursing note as charted by RN. PHYSICAL EXAM: CONSTITUTIONAL: Alert and oriented and responds appropriately to questions. Well-appearing; well-nourished HEAD: Normocephalic; atraumatic EYES: Sclerae non-icteric ENT: Normal nose; no rhinorrhea; moist mucous membranes; pharynx without lesions noted NECK: Supple without meningismus; non-tender; no cervical lymphadenopathy, no masses CARD: Regular rate and rhythm; no murmurs; symmetric distal pulses RESP: Normal chest excursion without splinting or tachypnea; breath sounds clear and equal bilaterally; no wheezes, no rhonchi, no rales ABD/GI: Normal bowel sounds; very elevated BMI; soft, non-tender; no palpable organomegaly or masses BACK: The back appears normal and is non-tender to palpation EXT: Normal ROM in all joints; non-tender to palpation; chronic appearing woody edema to bilateral lower extremities SKIN: No acute lesions noted NEURO: CN 2-12 intact; 5/5 bilateral upper and lower extremity strength with sensation intact to light touch PSYCH: The patient's mood and manner are appropriate. Grooming and personal hygiene are appropriate. TRAVEL OUTSIDE OF THE [place] IN LAST 30 DAYS: No - Related Data Allergies/Adverse Reactions: No Known Allergies Allergy (Verified 12/31/19 12:13) Past Medical History - Social History Smoking Status: Never Smoker Family History: CVA, DM, Malignancy - Past Medical History Cardiac Medical History: Reports: Hx Hypertension, Hx Heart Murmur Denies: Hx Congestive Heart Failure, Hx Hypercholesterolemia Pulmonary Medical History: Reports: Hx Bronchitis, Hx Pneumonia Denies: Hx Asthma Neurological Medical History: Denies: Hx Cerebrovascular Accident, Hx Seizures, Hx Parkinson's Disease Renal/ Medical History: Denies: Hx Peritoneal Dialysis Musculoskeletal Medical History: Reports Hx Arthritis, Reports Hx Musculoskeletal Deformity - chronic back pain, Reports Hx Musculoskeletal Trauma - Drains and sprains but no fractures Psychiatric Medical History: Denies: Hx Dementia Past Surgical History: Denies: Hx Pacemaker - Immunizations Immunizations up to date: No Hx Diphtheria, Pertussis, Tetanus Vaccination: No Hx Pneumococcal Vaccination: 05/29/12 Physical Exam - Vital signs Vitals: Temp Pulse Resp BP Pulse Ox 101.9 F H 115 H 26 H 135/62 H 95 03/22/20 06:30 03/22/20 06:30 03/22/20 06:30 03/22/20 06:30 03/22/20 06:30 Course - Re-evaluation Re-evalutation: Given the history and physical examination in this well-appearing male sitting up in a chair next to the stretcher in no acute distress watching TV, not on oxygen, with vital signs as recorded, with multiple bouts of nonbloody diarrhea with no abdominal pain or chest pain, we will obtain basic labs, liver panel and lipase, reassess, and obtain a urine and a stool culture/C. difficile. Patient denies any recent antibiotics and has not had no recent trips or travel. Given the symptomatology with a fever we will also obtain a coronavirus test. 03/22/20 09:53 White blood cell count as recorded. Urine analysis showing some leukocytes. Patient still denies any and all pain. Vital signs are stable. No obvious pn eumonia. Blood cultures have been sent. Normal lactic acid. No bouts of diarrhea here. We are not able to collect a C. difficile sample at this time. Patient denies any penile discharge. No testicular pain or swelling. We will treat the patient with a course of antibiotics and send a urine ch lamydia/gonorrhea. I will start the patient on Keflex with strict return precautions and follow-up with the primary doctor. Patient still denies any headache or neck pain and I do believe acute bacterial meningitis to be extremely unlikely. Patient understands the quarantine instructions until re sults have returned. - Vital Signs Vital signs: Temp Pulse Resp BP Pulse Ox 101.9 F H 115 H 26 H 135/62 H 95 03/22/20 06:30 03/22/20 06:30 03/22/20 06:30 03/22/20 06:30 03/22/20 06:30 - Laboratory Result Diagrams: 03/22/20 08:00 03/22/20 08:00 Laboratory results interpreted by me: 03/22/20 03/22/20 03/22/20 07:07 08:00 08:00 WBC 20.9 H Hgb 12.7 L Hct 37.6 L RDW 18.8 H Seg Neuts % (Manual) 93 H Band Neutrophils % 1 L Lymphocytes % (Manual) 3 L Monocytes % (Manual) 1 L Abs Neuts (Manual) 19.6 H Sodium 135.1 L Chloride 97 L Creatinine 1.30 H Est GFR (MDRD) Non-Af 59 L Glucose 115 H Direct Bilirubin 0.5 H Urine Protein 30 H Urine Blood SMALL H Urine Urobilinogen 4.0 H Ur Leukocyte Esterase SMALL H Discharge - Discharge Clinical Impression: Leukocytes in urine Fever Qualifiers: Fever type: unspecified Qualified Code(s): R50.9 - Fever, unspecified Diarrhea Qualifiers: Diarrhea type: unspecified type Qualified Code(s): R19.7 - Diarrhea, unspecified Condition: Good Disposition: HOME, SELF-CARE Additional Instructions: Come back immediately for any increase or worsening diarrhea, pain to the abdomen, headache or neck pain, change in mental status, shortness of breath, or any other acute problems. Please make sure that you follow-up with the primary care physician as discussed. Please take the antibiotics as prescribed. Please make sure that you stay well-hydrated. Please make sure that you quarantine yourself until the results have returned as discussed. Prescriptions: Cephalexin Monohydrate [Keflex 500 mg Capsule] 500 mg PO TID #21 capsule Referrals: ABE HAY DO [Primary Care Provider] - Follow up as needed
[2020-03-22] MEDS ORDERED: CEFTRIAXONE 1 GM/D5W RTU 1 GM/50 ML RTUPB IV ONE (09:52)
[2020-03-22] MEDS ORDERED: AZITHROMYCIN 250 MG TABLET PO ONE (09:52)
== END 2020-03-22 11:30 | disposition home or self-care (01) ==
LOC: ER 06:24
DX: R19.7 Diarrhea, unspecified (principal); R50.9 Fever, unspecified; I10 Essential (primary) hypertension; R82.998 Other abnormal findings in urine; Z20.828 Contact with and (suspected) exposure to other viral communicable diseases
CPT/HCPCS: 99284; 96361; 96374; 96375; 36415; 87040; 83605; 85025; 80053; 81001; 80307; 71045; J2405; J7030; J0696